=== PATIENT | female | born 1975 | race Caucasian/White ===

== ENCOUNTER → 2017-01-11 | Outpatient (REF) | payer OTHER ==
[2017-01-11 12:31] LABS: ANION GAP 9 MEQ/L (8-16); BLOOD UREA NITROGEN 11 MG/DL (7-18); CALCIUM LEVEL 8.7 MG/DL (8.5-10.1); CARBON DIOXIDE LEVEL 25 MEQ/L (21-32); CHLORIDE LEVEL 103 MEQ/L (98-107); CREATININE FOR GFR 0.87 MG/DL (0.55-1.02); GLOMERULAR FILTRATION RATE > 60.0 (>58); GLUCOSE, FASTING 186 MG/DL (70-105); POTASSIUM SERUM 4.3 MEQ/L (3.5-5.1); SODIUM LEVEL 137 MEQ/L (136-145)
== END ==
LOC: M SFHCPLAZ 08:32
PROVIDERS: ATTEND Nurse Practitioner Adult Health
DX: I87.2 Venous insufficiency (chronic) (peripheral) (principal); E55.9 Vitamin D deficiency, unspecified

== ENCOUNTER 2017-03-04 07:58 | Emergency (ER) | payer MEDICAID, OTHER ==
[~2017-03-04] VITALS: Ht 167.6 cm; Wt 104.5 kg
[2017-03-04 08:09] VITALS: BP 144/78
[2017-03-04] MEDS ORDERED: OMEP40CA2 PO (08:15)
[2017-03-04] MEDS ORDERED: NORT75CA2 PO (08:15)
[2017-03-04] MEDS ORDERED: ROPI1TAB PO (08:15)
[2017-03-04] MEDS ORDERED: ATIV1TAB7 PO (08:15)
[2017-03-04] MEDS ORDERED: ASPI1TAB PO (08:15)
[2017-03-04] MEDS ORDERED: BACL10TA2 PO (08:15)
[2017-03-04] MEDS ORDERED: HYDR200T3 PO (08:15)
[2017-03-04] MEDS ORDERED: MELO15TA4 PO (08:15)
[2017-03-04] MEDS ORDERED: DULO1CAP3 PO (08:15)
[2017-03-04] MEDS ORDERED: RIZA10TA2 PO (08:15)
[2017-03-04] MEDS ORDERED: BETA0.0543 TOP (08:30)
[2017-03-04] MEDS ORDERED: PRED20TA PO (08:30)
== END 2017-03-04 08:33 | disposition home or self-care (01) ==
LOC: M ED 07:58
DX: L50.0 Allergic urticaria (principal); J44.9 Chronic obstructive pulmonary disease, unspecified; K21.9 Gastro-esophageal reflux disease without esophagitis; G43.909 Migraine, unspecified, not intractable, without status migrainosus; M19.90 Unspecified osteoarthritis, unspecified site; F41.9 Anxiety disorder, unspecified; E66.9 Obesity, unspecified; Z79.899 Other long term (current) drug therapy; Z79.82 Long term (current) use of aspirin; F17.210 Nicotine dependence, cigarettes, uncomplicated

== ENCOUNTER 2017-04-20 11:20 | Emergency (ER) | payer MEDICAID, OTHER ==
[~2017-04-20] VITALS: Ht 165.1 cm; Wt 104.6 kg
[2017-04-20 11:20] VITALS: BP 129/85
[~2017-04-20 11:20] MED LIST: ASPI1TAB PO; ATIV1TAB7 PO; BACL10TA2 PO; BETA0.0543 TOP; DULO1CAP3 PO; HYDR200T3 PO; MELO15TA4 PO; NORT75CA2 PO; OMEP40CA2 PO; PRED20TA PO; RIZA10TA2 PO; ROPI1TAB PO
[2017-04-20] MEDS ORDERED: NAPR500T PO (12:58)
[2017-04-20] MEDS ORDERED: BACT800T5 PO (12:58)
== END 2017-04-20 13:15 | disposition home or self-care (01) ==
LOC: M ED 11:20
DX: L03.221 Cellulitis of neck (principal); E66.9 Obesity, unspecified; F99 Mental disorder, not otherwise specified; K21.9 Gastro-esophageal reflux disease without esophagitis; F17.210 Nicotine dependence, cigarettes, uncomplicated; Z79.899 Other long term (current) drug therapy; Z79.82 Long term (current) use of aspirin

== ENCOUNTER → 2017-05-31 | Outpatient (REF) | payer OTHER ==
[~2017-05-31] MED LIST changes: +BACT800T5 PO; +NAPR500T PO
[2017-05-31 14:41] LABS: BACTERIA, URINE SMALL AMOUNT; HYALINE CAST, URINE NONE SEEN /lpf (0-1); MICROSCOPIC EXAM PERFORMED; RBC, URINE NONE SEEN /hpf (0-3); SQUAMOUS EPITHELIAL CELL URINE LARGE AMOUNT /hpf (SMALL AMT); WBC, URINE 0-1 /hpf (0-3)
[2017-06-03 00:08] LABS: Candida species Negative (Negative); Gardnerella vaginalis Positive (Negative); Trichamonas vaginalis Negative (Negative)
== END ==
LOC: M SMT 13:32
PROVIDERS: ATTEND Specialist
DX: N89.8 Other specified noninflammatory disorders of vagina (principal); N39.46 Mixed incontinence

== ENCOUNTER → 2017-09-22 | Outpatient (REF) | payer OTHER ==
[2017-09-22 14:07] LABS: HEMATOCRIT 40.2 % (36.0-47.0); HEMOGLOBIN 13.3 g/dl (12.0-16.0); MEAN CORPUSCULAR HEMOGLOBIN 28.3 pg (27.0-33.0); MEAN CORPUSCULAR HGB CONC 33.1 g/dl (32.0-36.5); MEAN CORPUSCULAR VOLUME 85.5 fl (80.0-96.0); PLATELET COUNT, AUTOMATED 282 10^3/uL (150-450); WHITE BLOOD COUNT 10.7 10^3/uL (4.0-10.0)
[2017-09-22 14:31] LABS: ALBUMIN 3.2 GM/DL (3.2-5.2); ALBUMIN/GLOBULIN RATIO 0.76 (1.00-1.93); ALKALINE PHOSPHATASE 82 U/L (45-117); ALT/SGPT 24 U/L (12-78); ANION GAP 8 MEQ/L (8-16); AST/SGOT 17 U/L (7-37); BILIRUBIN,TOTAL 0.3 MG/DL (0.2-1.0); BLOOD UREA NITROGEN 11 MG/DL (7-18); CARBON DIOXIDE LEVEL 25 MEQ/L (21-32); CHLORIDE LEVEL 104 MEQ/L (98-107); CHOLESTEROL LEVEL 133 MG/DL (<200); CHOLESTEROL RISK RATIO 4.586 (<5); CREATININE FOR GFR 0.76 MG/DL (0.55-1.02); GLOMERULAR FILTRATION RATE > 60.0 (>58); GLUCOSE, FASTING 169 MG/DL (70-105); HDL CHOLESTEROL 29 MG/DL (>40); NON-HDL-C 104 MG/DL; SODIUM LEVEL 137 MEQ/L (136-145); TOTAL PROTEIN 7.4 GM/DL (6.4-8.2); TRIGLYCERIDES LEVEL 150 MG/DL (<150)
[2017-09-22 14:57] LABS: ESTIMATED AVERAGE GLUCOSE 235 MG/DL (60-110); HEMOGLOBIN A1c 9.8 %
== END ==
LOC: M SFHCPLAZ 10:55
DX: Z00.00 Encounter for general adult medical examination without abnormal findings (principal); H66.93 Otitis media, unspecified, bilateral
CPT/HCPCS: 84443

== ENCOUNTER → 2018-01-13 | Outpatient (CLI) | payer OTHER | LOC: M WHC 08:06 | DX: Z12.31 Encounter for screening mammogram for malignant neoplasm of breast (principal) | CPT/HCPCS: 77067 ==

== ENCOUNTER 2018-02-03 08:12 | Emergency (ER) | payer OTHER ==
[2018-02-03] MEDS ORDERED: IBUPROFEN 600 MG TAB As Ordered (08:50)
[2018-02-03] MEDS: IBUPROFEN 600 MG TAB PO (08:52)
== END 2018-02-03 08:54 | disposition home or self-care (01) ==
LOC: M ED 08:12
DX: H66.91 Otitis media, unspecified, right ear (principal); J45.909 Unspecified asthma, uncomplicated; K21.9 Gastro-esophageal reflux disease without esophagitis; J44.9 Chronic obstructive pulmonary disease, unspecified; F41.9 Anxiety disorder, unspecified; M19.90 Unspecified osteoarthritis, unspecified site; G43.909 Migraine, unspecified, not intractable, without status migrainosus; F17.200 Nicotine dependence, unspecified, uncomplicated; Z79.899 Other long term (current) drug therapy; Z79.82 Long term (current) use of aspirin
CPT/HCPCS: 99282

== ENCOUNTER → 2018-03-16 | Outpatient (CLI) | payer OTHER | LOC: M PAIN 10:00 | DX: M54.2 Cervicalgia (principal); M53.3 Sacrococcygeal disorders, not elsewhere classified; M25.50 Pain in unspecified joint; I10 Essential (primary) hypertension; M19.011 Primary osteoarthritis, right shoulder; M19.012 Primary osteoarthritis, left shoulder; G43.909 Migraine, unspecified, not intractable, without status migrainosus; F32.9 Major depressive disorder, single episode, unspecified; F41.9 Anxiety disorder, unspecified; G47.33 Obstructive sleep apnea (adult) (pediatric); J45.909 Unspecified asthma, uncomplicated; F17.210 Nicotine dependence, cigarettes, uncomplicated; Z79.84 Long term (current) use of oral hypoglycemic drugs; Z79.899 Other long term (current) drug therapy; Z88.6 Allergy status to analgesic agent | CPT/HCPCS: G0463 ==

== ENCOUNTER → 2018-05-04 | Outpatient (REF) | payer OTHER ==
[2018-05-04 18:02] LABS: APPEARANCE, URINE CLEAR (CLEAR); BACTERIA, URINE AUTO NEGATIVE (NEGATIVE); BILIRUBIN, URINE AUTO NEGATIVE (NEGATIVE); BLOOD, URINE BLOOD NEGATIVE (NEGATIVE); COLOR, URINE STRAW (YELLOW); GLUCOSE, URINE (UA) AUTO NEGATIVE (NEGATIVE); KETONE, URINE AUTO NEGATIVE (NEGATIVE); LEUKOCYTE ESTERASE, URINE AUTO NEGATIVE (NEGATIVE); NITRITE, URINE AUTO NEGATIVE (NEGATIVE); PROTEIN, URINE AUTO NEGATIVE (NEGATIVE); RBC, URINE AUTO 0 /HPF (0-3); SPECIFIC GRAVITY URINE AUTO 1.008 (1.002-1.035); SQUAMOUS EPITHELIAL CELL UR AU 0 /HPF (0-6); UROBILINOGEN, URINE AUTO 0.2 mg/dL (0.0-2.0); WBC, URINE AUTO 0 /HPF (0-3)
== END ==
LOC: M SMT 17:14
DX: R39.15 Urgency of urination (principal)
CPT/HCPCS: 81001

== ENCOUNTER → 2018-06-08 | Outpatient (CLI) | payer OTHER | LOC: M PAIN 08:30 | DX: M79.7 Fibromyalgia (principal); M54.2 Cervicalgia; M53.3 Sacrococcygeal disorders, not elsewhere classified; M25.512 Pain in left shoulder; I10 Essential (primary) hypertension; G43.909 Migraine, unspecified, not intractable, without status migrainosus; F32.9 Major depressive disorder, single episode, unspecified; F41.9 Anxiety disorder, unspecified; G47.33 Obstructive sleep apnea (adult) (pediatric); Z79.84 Long term (current) use of oral hypoglycemic drugs; Z79.899 Other long term (current) drug therapy; Z88.8 Allergy status to other drugs, medicaments and biological substances | CPT/HCPCS: G0463 ==

== ENCOUNTER → 2018-07-25 | Outpatient (REF) | payer OTHER ==
[2018-07-25 12:29] LABS: ANION GAP 9 MEQ/L (8-16); AST/SGOT 19 U/L (7-37); BLOOD UREA NITROGEN 11 MG/DL (7-18); CALCIUM LEVEL 8.7 MG/DL (8.5-10.1); CARBON DIOXIDE LEVEL 26 MEQ/L (21-32); CHLORIDE LEVEL 101 MEQ/L (98-107); CREATININE FOR GFR 0.82 MG/DL (0.55-1.30); GLOMERULAR FILTRATION RATE > 60.0 (>58); GLUCOSE, FASTING 186 MG/DL (70-100); POTASSIUM SERUM 4.2 MEQ/L (3.5-5.1); SODIUM LEVEL 136 MEQ/L (136-145)
[2018-07-25 12:30] LABS: ALBUMIN/GLOBULIN RATIO 0.75 (1.00-1.93); ALKALINE PHOSPHATASE 73 U/L (45-117); ALT/SGPT 27 U/L (12-78); BILIRUBIN,TOTAL 0.1 MG/DL (0.2-1.0); CHOLESTEROL LEVEL 128 MG/DL (<200); CHOLESTEROL RISK RATIO 4.571 (<5); HDL CHOLESTEROL 28 MG/DL (>40); LDL CHOLESTEROL 54 MG/DL (<100); NON-HDL-C 100 MG/DL; TOTAL 25(OH) VITAMIN D 29.9 NG/ML (30.0-100.0); TRIGLYCERIDES LEVEL 231 MG/DL (<150)
[2018-07-25 12:36] LABS: MALB URINE SIEMENS 5.4 MG/L; MAU/CREAT RATIO 5.1 MCG/MG (0.0-30.0)
[2018-07-25 12:45] LABS: ESTIMATED AVERAGE GLUCOSE 206 MG/DL (60-110); HEMOGLOBIN A1c 8.8 %
== END ==
LOC: M SFHCPLAZ 09:00
DX: Z00.00 Encounter for general adult medical examination without abnormal findings (principal); E55.9 Vitamin D deficiency, unspecified; E11.9 Type 2 diabetes mellitus without complications

== ENCOUNTER → 2018-07-26 | Outpatient (REF) | LOC: M SMT 11:07 | DX: Z02.71 Encounter for disability determination (principal) ==

== ENCOUNTER → 2018-09-08 | Outpatient (CLI) | payer OTHER ==
[~2018-09-08] MED LIST changes: +AMOX500C PO; +MELO15TA28 PO; -MELO15TA4 PO; +NAPR-50 PO; -NAPR500T PO; +TYLE325T5 PO
--- NOTE | 2018-09-29 02:16 | ECWPNPC ---
PATIENT NAME: CARLTON SAENZ : 1975 GENDER: FEMALE VISIT DATE: 09/08/2018 DISCHARGE DATE: 09/08/18921 VISIT LOCKED DATE TIME: PHYSICIAN: ROSARIO SULLIVAN RESOURCE: ROSARIO SULLIVAN REASON FOR APPOINTMENT 1. GENERAL PAIN HISTORY OF PRESENT ILLNESS HISTORY OF PRESENT ILLNESS: PAIN THE PATIENT DESCRIBES THE PAIN... THE PATIENT DESCRIBES THE PAIN... HERE FOR F/U OF CHRONIC GENERALIZED PAIN.MULTIPLE MEDICATION TRIALS HAVE BEEN INEFECTIVE.WE INCREASED LYRICA 200MG TID AND SHE IS NOTICING SOME IMPROVEMENT AND LESS NEED FOR 6 DOSES OF TRAMADOL PER DAY.NOTICING MORE PAIN DUE TO WEATHER. RATING PAIN VAS 9/10. FALL RISK SCREENING: SCREENING :NO FALLS IN THE PAST YEAR CURRENT MEDICATIONS TAKING RIZATRIPTAN BENZOATE 10 MG TABLET 1 TABLET NEEDED ONE TIME ORALLY ONCE A DAY, NOTES: ESVIN PARIS TAKING HYDROXYCHLOROQUINE SULFATE 200 MG TABLET 1 TABLET WITH FOOD OR MILK ORALLY TWICE DAILY, NOTES: DR. MICHAEL FAIRCHILD TAKING BACLOFEN 10 MG TABLET 1 TABLET WITH FOOD OR MILK ORALLY THREE TIMES A DAY, NOTES: ESVIN [place] TAKING LYRICA 200 MG CAPSULE 1 CAPSULE ORALLY THREE TIMES A DAY TAKING TRAZODONE HCL 100 MG TABLET 1 TABLET AT BEDTIME ORALLY ONCE A DAY TAKING CITALOPRAM HYDROBROMIDE 20 MG TABLET TAKE ONE TABLET BY MOUTH EVERY DAY ORAL TAKING OMEPRAZOLE 40 MG CAPSULE DELAYED RELEASE 1 CAPSULE ORALLY ONCE A DAY TAKING PROAIR HFA 108 (90 BASE) MCG/ACT AEROSOL SOLUTION 2 PUFFS NEEDED INHALATION EVERY 6 HRS TAKING TRAMADOL HCL 50 MG TABLET 1-2 ORALLY BID TAKING HYDROCHLOROTHIAZIDE 12.5 MG CAPSULE 1 CAPSULE ORALLY ONCE A DAY TAKING OXYBUTYNIN CHLORIDE ER 10 MG TABLET EXTENDED RELEASE 24 HOUR 1 TABLET ORALLY ONCE A DAY TAKING AIRDUO RESPICLICK 232/14 232-14 MCG/ACT AEROSOL POWDER BREATH ACTIVATED 1 PUFF INHALATION TWICE A DAY TAKING MIRAPEX 0.5 MG TABLET 1 TABLET ORALLY THREE TIMES A DAY TAKING DRISDOL 15802 UNIT CAPSULE 1 CAPSULE ORALLY WEEKLY TAKING VENTOLIN HFA 108 (90 BASE) MCG/ACT AEROSOL SOLUTION INHALE TWO PUFFS BY MOUTH EVERY 6 HOURS NEEDED TAKING FLOMAX 0.4 MG CAPSULE 1 CAPSULE ORALLY ONCE A DAY TAKING GLIPIZIDE ER 5 MG TABLET EXTENDED RELEASE 24 HOUR 1 TABLET ORALLY DAILY TAKING METFORMIN HCL ER 500 MG TABLET EXTENDED RELEASE 24 HOUR 2 TABLETS ORALLY 2 TABS IN THE AM, 2 TAB AT SUPPER TAKING ALOGLIPTIN BENZOATE 6.25 MG TABLET 1 TAB ORALLY DAILY MEDICATION LIST REVIEWED AND RECONCILED WITH THE PATIENT PAST MEDICAL HISTORY HYPERTENSION OSTEOARTHRITIS OF SPINE/SHOULDERS MIGRAINES CERVICAL DYSPLASIA CHRONIC HEMATURIA (WAS SEEING UROLOGIST IN [place]) DEPRESSION/ANXIETY LEFT SHOULDER PAIN WITH LEFT ARM WEAKNESS/NUMBNESS FOR > 1 YR (MRI HAS BEEN ORDERED BY NEURO) OVARAIN CYSTS HISTORY OF REFUSES FOLLOW UP 06/08/16 RANDA = CPAP ASTHMA/COPD PER PT QUESTION ANTIPHOSPHOLIPID SYNDROME, PER RHEUMATOLOGY NOTES ABDOMINAL WALL CELLULITIS FIBROMYALGIA ALLERGIES NAPROXEN: UPSET STOMACH: SIDE EFFECTS SURGICAL HISTORY D&C X2 1989 APPENDECTOMY 05/2002 BTL 1999 APPROXIMATELY LEEP X2 FOR MYRON 3 2003 TVH DUE TO PROLAPSED UTERUS 09/2004 ABDOMINAL HERNIA REPAIR 2007 BILATERAL CARPAL TUNNEL AND RIGHT ELBOW ULNAR NERVE TRANSPOSITION 08/11/2016 FAMILY HISTORY FATHER: 47 YRS, HEART DISEASE, HTN MOTHER: ALIVE, HTN, DM-2, ASTHMA,COPD SIBLINGS: YOUNGEST BROTHER: CHF AND HTN DAUGHTER(S): ASTHMA/ALLERGIES/HEARING PROBLEMS MATERNAL UNCLE: RENAL CANCER MATERNAL AUNT: ALIVE, ONE WITH BREAST CANCER, MASTECTOMY, DX 60 5 BROTHER(S) , 1 SISTER(S) . 1 SON(S) , 2 DAUGHTER(S) . BREAST CANCER MOTHERS SIDE OF THE FAMILY- 2 AUNTSKIDNEY CANCER MOTHERS SIDE OF THE FAMILY- 2 UNCLES. SOCIAL HISTORY GENERAL: TOBACCO USE ARE YOU A:CURRENT SMOKER ARE YOU INTERESTED IN QUITTING?NOT READY TO QUIT COUNSELED THE PATIENT ON SMOKING EFFECTS, EDUCATION [id number]/23/2018 HOW MANY CIGARETTES A DAY DO YOU SMOKE?11-20 BMI CARE GOAL FOLLOW-UP ABOVE NORMAL BMI FOLLOW-UPWEIGHT MONITORING ALCOHOL SCREENING DID YOU HAVE A DRINK CONTAINING ALCOHOL IN THE PAST YEAR?NO POINTS0 INTERPRETATIONNEGATIVE RECREATIONAL DRUG USE DRUG USE?NO PATIENT DENIES ABUSE OR MISSUSED OF ANY MEDICATION. PATIENT DENIES USE OF ANY ILLEGAL SUBSTANCE INCLUDING MARIJUANA OR COCAINE. CAFFEINE CAFFEINE USE?YES COFFEE = 2 CUPS PER DAY HOW OFTEN AND HOW MUCH? 1-2 COFFEES PER DAY 16OZ OF SODA PER DAY SEXUAL HX HAD SEX IN THE LAST 12 MONTHS (VAGINAL, ORAL, OR ANAL)?YES WITHMEN ONLY USE PROTECTION?NO HAVE YOU EVER HAD AN STD?NO HIV / HEP-C SCREENING HIV TEST OFFERED TO PATIENT:YES DATE OFFERED:07/25/2018 TEST ACCEPTED:NO REASON:PATIENT DECLINED BROCHURE PROVIDED TO PATIENTNO 07/25/2018 DECLINED HEP-C TEST OFFERED TO PATIENT:YES DATE OFFERED:07/25/2018 TEST ACCEPTED:NO REASON:PATIENT DECLINED FAITH FAITH NONE LANGUAGE MONTSERRATIAN. EDUCATION 9TH GRADE, NO GED. LEARNING BARRIERS / SPECIAL NEEDS CHANGE FROM LAST VISIT?YES BURN ON ABDOMEN BARRIERS TO LEARNING?NO HEARING IMPAIRED?NO VISION IMPAIRED?YES :CORRECTIVE LENSES COGNITIVELY IMPAIRED?NO READINESS TO LEARN?YES LEARNING PREFERENCES?NO LEARNING CAPABILITIES PRESENT?YES EMOTIONAL BARRIERS?NO SPECIAL DEVICES?NO DOMESTIC VIOLENCE NONE. OCCUPATION: UNEMPLOYED "[employer] DID PAPER WORK" TRIED FOR MEDICAL DISABLILITY 4 TIMES DENIED.. DIET: REGULAR. EXERCISE: NO REGULAR EXERCISE. MARITAL STATUS: . OTHERS AT HOME: SPOUSE, 1 CHILD AT HOME 2 OTHER CHILDREN ARE OUT OF HOME. PAIN CLINIC PFS, CLERGY, PUBLIC HEALTH REFERRALS HAS THE PATIENT BEEN EDUCATED REGARDING HIS/HER PLAN OF CARE?YES HAS THE PATIENT BEEN EDUCATED REGARDING PAIN, THE RISK FOR PAIN, THE IMPORTANCE OF EFFECTIVE PAIN MANAGEMENT, AND THE PAIN ASSESSMENT PROCESS?YES HOUSING: OWNS HOME. ADVANCE DIRECTIVE ADVANCE DIRECTIVE DISCUSSED WITH PATIENT:YES DECLINED HOSPITALIZATION/MAJOR DIAGNOSTIC PROCEDURE SX RELATED REVIEW OF SYSTEMS REVIEWED BY: PROVIDER: ROSARIO IRIZARRY . CONSTITUTIONAL: ANY CHANGE IN YOUR MEDICAL CONDITION? NO . CHILLS NO . FEVER NO . INFECTION: DO YOU HAVE NEW INFECTIONS? NO . DO YOU HAVE HISTORY OF MRSA? NO . MUSCULOSKELETAL: ANY NEW PATTERNS OF PAIN OR NUMBNESS? YES, RIGHT HIP NUMBNESS AND CRAMPS FOR PAST 3 MONTHS . GASTROENTEROLOGY: ANY NEW CHANGE IN BOWEL CONTROL? YES, STATES NO LOSS OF CONTROL HOWEVER HAS HAD CONSTIPATION ALTERNATING WITH DIARRHEA FOR PAST 3 WEEKS WITH CONSTIPATION BEING WORSE THAN DIARRHEA . GENITOURINARY: ANY NEW CHANGE IN BLADDER CONTROL? NO . IS THERE A CHANCE YOU COULD BE ? NO . HEMATOLOGY/LYMPH: DO YOU TAKE ANY BLOOD THINNERS? (FOR EXAMPLE- COUMADIN, PLAVIX, AGGRENOX, PLATEL, PRADAXA, OR XARELTO) YES - PLAVIX . WHEN WAS YOUR LAST DOSE? DATE: TIME: . NEUROLOGY: HAVE YOU FALLEN IN THE PAST 6 MONTHS? YES . ANY NEW EXTREMITY NUMBNESS OR WEAKNESS? NO . CARDIOLOGY: DO YOU HAVE A PACEMAKER OR DEFIBRILLATOR? NO . RESPIRATORY: HAVE YOU BEEN SICK IN THE PAST WEEK? NO . FEVER NO . FLU LIKE SYMPTOMS? NO . COUGH NO . INTEGUMENTARY: DO YOU HAVE ANY RASHES OR OPEN SORES? NO . ALLERGIC/IMMUNO: ARE YOU ALLERGIC TO SHELLFISH OR IV DYE? NO . ANY NEW ALLERGIES? NO . PSYCHIATRIC: DO YOU HAVE THOUGHTS OF HURTING YOURSELF OR SOMEONE ELSE? NO . ARE YOU ABUSED, NEGLECTED, OR IN AN UNSAFE ENVIRONMENT? NO . ENDOCRINOLOGY: ARE YOU DIABETIC? YES . OTHER: DO YOU NEED ANY PRESCRIPTIONS? NO . IF YES, PLEASE LIST: ____ . ANY NEW PROBLEMS WITH YOUR MEDICATIONS? NO . WHEN DID YOU LAST EAT? ____ . WHEN DID YOU LAST DRINK? ____ . WHAT DID YOU LAST DRINK? ____ . NAME OF PERSON DRIVING YOU HOME? ____ . DO YOU HAVE ANY OTHER QUESTIONS OR CONCERNS YES - PAIN MEDICATIONS NOT WORKING - TRAMADOL . VITAL SIGNS WT 241 LBS, HT 66 IN, BMI 38.89 INDEX, BP 129/85 MM HG, HR 72 /MIN, RR 18 /MIN, TEMP 97.9 F, OXYGEN SAT % 94%, NA INITIALS SC 09:04, REVIEWED BY: JAZMIN. EXAMINATION GENERAL EXAMINATION: GENERAL APPEARANCE:ALERT,NO ACUTE DISTRESS. . PSYCHAFFECT NORMAL . LUNGS:LUNG MOTT ARE CLEAR TO AUSCULTATION BILATERALLY. GOOD MOVEMENT OF AIR . HEART:S1, S2 IN A REGULAR RATE AND RHYTHM. NO SIGNIFICANT MURMURS, RUBS OR GALLOPS NOTED . MUSCULOSKELETAL:MUSCLE STRENGTH TESTING 5/5 BILATERAL LOWER EXTREMITIES TENDER WITH PALPATION OVER LEFT SHOULDER.LEFT UPPER ARM IS TENDER TO PALPATION. MULTIPLE AREAS OF TENDER SPOTS INDICATIVE OF FIBROMYALGIA. . LUMBAR SACRAL SPINETENDER OVER LOW BACK WITH SPECIFIC POINT TENDERNESS OVER RIGHT SIJ POSITIVE PATRICKS TEST RIGHT LEG . DIAGNOSTIC TESTS REVIEWEDXRAY-LEFT [id number]. ASSESSMENTS FIBROMYALGIA - M79.7 (PRIMARY) CERVICALGIA - M54.2 SACRO-ILIAC PAIN - M53.3 PAIN OF LEFT SHOULDER REGION - M25.512 TREATMENT FIBROMYALGIA REFILL LYRICA CAPSULE, 200 MG, 1 CAPSULE, ORALLY, THREE TIMES A DAY, 30 DAY(S), 90 CAPSULE, REFILLS 2 REFILL TRAMADOL HCL TABLET, 50 MG, 1-2, ORALLY, BID, 30 DAY(S), 120, REFILLS 2 NOTES: ISTOP REGISTRY REVIEWED AND DEMONSTRATES COMPLLIANCE. , RISKS AND BENEFITS OF NARCOTIC/OPIOD MEDICATIONS WERE REVIEWED WITH PATIENT - THIS INCLUDES BUT IS NOT LIMITED TO RISK OF DEPENDANCE/DEVELOPMENT OF ADDICTION, MOOD DISTURBANCE AND DEPRESSION, OSTEOPOROSIS, HORMONAL AND LABIDAL CHANGES, RESPIRATORY DEPRESSION AND . PATIENT IS ADVISED NOT TO DRIVE OR DRINK ALCOHOL WHILE ON THESE MEDICATIONS. PROCEDURE CODES FA211 ESTABILISHED PATIENT [facility] CHARGE DISPOSITION & COMMUNICATION FOLLOW UP 3 MONTHS ELECTRONICALLY SIGNED BY EDIE PITTS ON 09/28/2018 AT 12:27 PM EST DISCLAIMER : THIS IS A VISIT SUMMARY EXTRACTED FROM THE [employer] CHART. IT IS NOT A COPY OF THE [employer] PROGRESS NOTE. ROJELIO
== END ==
LOC: M PAIN 08:30
PROVIDERS: ATTEND Nurse Practitioner Family
DX: M79.7 Fibromyalgia (principal); M54.2 Cervicalgia; M53.3 Sacrococcygeal disorders, not elsewhere classified; M25.512 Pain in left shoulder; E11.9 Type 2 diabetes mellitus without complications; I10 Essential (primary) hypertension; J45.909 Unspecified asthma, uncomplicated; G43.909 Migraine, unspecified, not intractable, without status migrainosus; F32.9 Major depressive disorder, single episode, unspecified; F41.9 Anxiety disorder, unspecified; G47.33 Obstructive sleep apnea (adult) (pediatric); F17.210 Nicotine dependence, cigarettes, uncomplicated; E66.01 Morbid (severe) obesity due to excess calories; Z79.891 Long term (current) use of opiate analgesic; Z79.84 Long term (current) use of oral hypoglycemic drugs; Z79.899 Other long term (current) drug therapy; Z68.38 Body mass index [BMI] 38.0-38.9, adult; Z79.01 Long term (current) use of anticoagulants; Z88.8 Allergy status to other drugs, medicaments and biological substances

== ENCOUNTER → 2018-10-16 | Outpatient (REF) | payer OTHER ==
[2018-10-16 12:05] LABS: HEMATOCRIT 39.7 % (36.0-47.0); MEAN CORPUSCULAR HEMOGLOBIN 27.1 pg (27.0-33.0); MEAN CORPUSCULAR HGB CONC 32.7 g/dl (32.0-36.5); MEAN CORPUSCULAR VOLUME 82.9 fl (80.0-96.0); PLATELET COUNT, AUTOMATED 289 10^3/uL (150-450); RED BLOOD COUNT 4.79 10^6/uL (4.00-5.40); WHITE BLOOD COUNT 10.7 10^3/uL (4.0-10.0)
[2018-10-16 12:31] LABS: ALBUMIN 3.1 GM/DL (3.2-5.2); ALT/SGPT 19 U/L (12-78); BILIRUBIN,TOTAL 0.2 MG/DL (0.2-1.0); BLOOD UREA NITROGEN 10 MG/DL (7-18); CALCIUM LEVEL 8.8 MG/DL (8.5-10.1); CARBON DIOXIDE LEVEL 27 MEQ/L (21-32); CHLORIDE LEVEL 103 MEQ/L (98-107); CHOLESTEROL LEVEL 116 MG/DL (<200); CHOLESTEROL RISK RATIO 4.142 (<5); CREATININE FOR GFR 0.82 MG/DL (0.55-1.30); GLOMERULAR FILTRATION RATE > 60.0 (>58); GLUCOSE, FASTING 109 MG/DL (70-100); HDL CHOLESTEROL 28 MG/DL (>40); HEMOGLOBIN A1c 8.7 %; LDL CHOLESTEROL 52 MG/DL (<100); NON-HDL-C 88 MG/DL; POTASSIUM SERUM 4.3 MEQ/L (3.5-5.1); SODIUM LEVEL 138 MEQ/L (136-145); TOTAL 25(OH) VITAMIN D 69.7 NG/ML (30.0-100.0); TOTAL PROTEIN 7.1 GM/DL (6.4-8.2); TRIGLYCERIDES LEVEL 181 MG/DL (<150); TROPONIN I < 0.02 NG/ML (< 0.10)
== END ==
LOC: M SFHCPLAZ 09:00
PROVIDERS: ATTEND Nurse Practitioner Adult Health
DX: E11.9 Type 2 diabetes mellitus without complications (principal); R07.89 Other chest pain; E55.9 Vitamin D deficiency, unspecified

== ENCOUNTER → 2018-12-07 | Outpatient (CLI) | payer OTHER ==
[~2018-12-07] MED LIST changes: -ASPI1TAB PO; +ASPI81TA26 PO; -NAPR-50 PO; +NAPR-837 PO
--- NOTE | 2018-12-22 02:31 | ECWPNPC ---
PATIENT NAME: CARLTON SAENZ : 1975 GENDER: FEMALE VISIT DATE: 12/07/2018 DISCHARGE DATE: 12/07/18 1157 VISIT LOCKED DATE TIME: PHYSICIAN: ROSARIO SULLIVAN RESOURCE: ROSARIO SULLIVAN REASON FOR APPOINTMENT 1. GENERAL PAIN HISTORY OF PRESENT ILLNESS HISTORY OF PRESENT ILLNESS: HERE FOR F/U OF CHRONIC GENERALIZED JOINT PAIN.RATING PAIN VAS 8/10.FEELS SHE IS HAVING A FLARE UP LATELY.DISCUSSED MEDICATION OPTIONS.HISTORY OF CHRONIC GENERALIZED JOINT PAIN.DESCRIBES PAIN CONTINUOUS,ACHING AND BURNING. PAIN THE PATIENT DESCRIBES THE PAIN... FALL RISK SCREENING: SCREENING :NO FALLS REPORTED IN THE LAST YEAR CURRENT MEDICATIONS TAKING RIZATRIPTAN BENZOATE 10 MG TABLET 1 TABLET NEEDED ONE TIME ORALLY ONCE A DAY, NOTES: ESVIN PARIS TAKING HYDROXYCHLOROQUINE SULFATE 200 MG TABLET 1 TABLET WITH FOOD OR MILK ORALLY TWICE DAILY, NOTES: DR. MICHAEL FAIRCHILD TAKING TRAZODONE HCL 100 MG TABLET 1 TABLET AT BEDTIME ORALLY ONCE A DAY TAKING CITALOPRAM HYDROBROMIDE 20 MG TABLET TAKE ONE TABLET BY MOUTH EVERY DAY ORAL TAKING AIRDUO RESPICLICK 232/14 232-14 MCG/ACT AEROSOL POWDER BREATH ACTIVATED 1 PUFF INHALATION TWICE A DAY TAKING MIRAPEX 0.5 MG TABLET 1 TABLET ORALLY THREE TIMES A DAY TAKING DRISDOL 41183 UNIT CAPSULE 1 CAPSULE ORALLY WEEKLY TAKING METFORMIN HCL ER 500 MG TABLET EXTENDED RELEASE 24 HOUR 2 TABLETS ORALLY 2 TABS IN THE AM, 2 TAB AT SUPPER TAKING ALOGLIPTIN BENZOATE 6.25 MG TABLET 1 TAB ORALLY DAILY, NOTES: ANDREA TAKING LYRICA 200 MG CAPSULE 1 CAPSULE ORALLY THREE TIMES A DAY TAKING ULTRA TEST STRIPS - STRIP DIRECTED IN VITRO E11.9 DAILY THREE DAYS PER WEEK AND PRN TAKING LANCET DEVICE - MISCELLANEOUS DIRECTED TOPICALLY E11.9 BID 3 DAYS PER WEEK AND PRN TAKING CARAFATE 1 GM TABLET 1 TABLET ON AN EMPTY STOMACH ORALLY BEFORE BEDTIME TAKING OMEPRAZOLE 40 MG CAPSULE DELAYED RELEASE 1 CAPSULE ORALLY ONCE A DAY TAKING VENTOLIN HFA 108 (90 BASE) MCG/ACT AEROSOL SOLUTION INHALE TWO PUFFS BY MOUTH EVERY 6 HOURS NEEDED TAKING TRAMADOL HCL 50 MG TABLET 1-2 ORALLY FOR PAIN EVERY 12 HOURS NEEDED MDD4 TAKING OXYBUTYNIN CHLORIDE ER 10 MG TABLET EXTENDED RELEASE 24 HOUR 1 TABLET ORALLY ONCE A DAY TAKING LISINOPRIL 5 MG TABLET 1 TABLET ORALLY ONCE A DAY TAKING FLUTICASONE PROPIONATE 50 MCG/ACT SUSPENSION 2 SPRAYS IN EACH NOSTRIL NASALLY ONCE A DAY TAKING TRIAMCINOLONE ACETONIDE 0.1 % CREAM 1 APPLICATION TO AFFECTED AREA EXTERNALLY TWICE A DAY TO RASH ON LEGS MEDICATION LIST REVIEWED AND RECONCILED WITH THE PATIENT PAST MEDICAL HISTORY HYPERTENSION OSTEOARTHRITIS OF SPINE/SHOULDERS MIGRAINES CERVICAL DYSPLASIA CHRONIC HEMATURIA (WAS SEEING UROLOGIST IN [place]) DEPRESSION/ANXIETY/PANIC DISORDER FOLLOWS WITH [facility]-DR. BETANCOURT LEFT SHOULDER PAIN WITH LEFT ARM WEAKNESS/NUMBNESS FOR > 1 YR (MRI HAS BEEN ORDERED BY NEURO) OVARAIN CYSTS HISTORY OF REFUSES FOLLOW UP 06/08/16 RANDA = CPAP ASTHMA/COPD PER PT QUESTION ANTIPHOSPHOLIPID SYNDROME, PER RHEUMATOLOGY NOTES ABDOMINAL WALL CELLULITIS FIBROMYALGIA FAMILY HISTGORY OF HEART DISEASE DAD AND BROTHER < 50 ALLERGIES NAPROXEN: UPSET STOMACH - SIDE EFFECTS SURGICAL HISTORY D&C X2 1989 APPENDECTOMY 05/2002 BTL 1999 APPROXIMATELY LEEP X2 FOR MYRON 3 2003 TVH DUE TO PROLAPSED UTERUS 09/2004 ABDOMINAL HERNIA REPAIR 2007 BILATERAL CARPAL TUNNEL AND RIGHT ELBOW ULNAR NERVE TRANSPOSITION 08/11/2016 FAMILY HISTORY FATHER: 47 YRS, HEART DISEASE, HTN MOTHER: ALIVE, HTN, DM-2, ASTHMA,COPD SIBLINGS: YOUNGEST BROTHER: CHF AND HTN DAUGHTER(S): ASTHMA/ALLERGIES/HEARING PROBLEMS MATERNAL UNCLE: RENAL CANCER MATERNAL AUNT: ALIVE, ONE WITH BREAST CANCER, MASTECTOMY, DX 60 5 BROTHER(S) , 1 SISTER(S) . 1 SON(S) , 2 DAUGHTER(S) . BREAST CANCER MOTHERS SIDE OF THE FAMILY- 2 AUNTS\\\\NKIDNEY CANCER MOTHERS SIDE OF THE FAMILY- 2 UNCLES. SOCIAL HISTORY GENERAL: TOBACCO USE ARE YOU A:CURRENT SMOKER ARE YOU INTERESTED IN QUITTING?NOT READY TO QUIT COUNSELED THE PATIENT ON SMOKING EFFECTS, EDUCATION [id number]/23/2018 HOW MANY CIGARETTES A DAY DO YOU SMOKE?11-20 PATIENT COUNSELED ON THE DANGERS OF TOBACCO USE AND URGED TO QUIT:12/07/2018 LATEX QUESTIONNAIRE LATEX ALLERGY : HAVE YOU EVER DEVELOPED ANY TYPE OF REACTION AFTER HANDLING LATEX PRODUCTS SUCH RUBBER GLOVES, CONDOMS, DIAPHRAGMS, BALLOONS, SOCKS, OR UNDERWEAR?NO LATEX ALLERGY : HAVE YOU EVER DEVELOPED ANY TYPE OF REACTION DURING OR AFTER DENTAL APPOINTMENT, VAGINAL/RECTAL EXAMINATION, SURGICAL PROCEDURE, OR ANY OTHER EXPOSURE?NO LATEX RISK : HAVE YOU EVER HAD ANY DIFFICULTY BREATHING OR HIVES AFTER EATING OR HANDLING ANY FRUITS, OR VEGETABLES; SUCH KIWI, BANANAS, STONE FRUITS, OR CHESTNUTSNO LATEX RISK : DO YOU HAVE A PREVIOUS PERSONAL HISTORY OF MORE THAN NINE SURGERIES, SPINA BIFIDA, OR REPEATED CATHERTIZATIONS? NO LATEX RISK : ARE YOU FREQUENTLY EXPOSED TO LATEX PRODUCTS IN YOUR OCCUPATION?NO DATE ASKED : 12/06/2018 BMI CARE GOAL FOLLOW-UP ABOVE NORMAL BMI FOLLOW-UPWEIGHT MONITORING ALCOHOL SCREENING DID YOU HAVE A DRINK CONTAINING ALCOHOL IN THE PAST YEAR?NO POINTS0 INTERPRETATIONNEGATIVE RECREATIONAL DRUG USE DRUG USE?NO PATIENT DENIES ABUSE OR MISSUSED OF ANY MEDICATION. PATIENT DENIES USE OF ANY ILLEGAL SUBSTANCE INCLUDING MARIJUANA OR COCAINE. CAFFEINE CAFFEINE USE?YES COFFEE = 2 CUPS PER DAY HOW OFTEN AND HOW MUCH? 1-2 COFFEES PER DAY 16OZ OF SODA PER DAY SEXUAL HX HAD SEX IN THE LAST 12 MONTHS (VAGINAL, ORAL, OR ANAL)?YES WITHMEN ONLY USE PROTECTION?NO HAVE YOU EVER HAD AN STD?NO HIV / HEP-C SCREENING HIV TEST OFFERED TO PATIENT:YES DATE OFFERED:07/25/2018 TEST ACCEPTED:NO HEP-C TEST OFFERED TO PATIENT:YES DATE OFFERED:07/25/2018 REASON:PATIENT DECLINED TEST ACCEPTED:NO REASON:PATIENT DECLINED BROCHURE PROVIDED TO PATIENTNO 07/25/2018 DECLINED HOAHAOISM HOAHAOISM NONE LANGUAGE EMIRATI. EDUCATION 9TH GRADE, NO GED. LEARNING BARRIERS / SPECIAL NEEDS CHANGE FROM LAST VISIT?YES BURN ON ABDOMEN BARRIERS TO LEARNING?NO HEARING IMPAIRED?NO VISION IMPAIRED?YES COGNITIVELY IMPAIRED?NO :CORRECTIVE LENSES READINESS TO LEARN?YES LEARNING PREFERENCES?NO LEARNING CAPABILITIES PRESENT?YES EMOTIONAL BARRIERS?NO SPECIAL DEVICES?NO DOMESTIC VIOLENCE NONE. OCCUPATION: UNEMPLOYED "[employer] DID PAPER WORK" TRIED FOR MEDICAL DISABLILITY 4 TIMES DENIED.. DIET: REGULAR. EXERCISE: NO REGULAR EXERCISE. MARITAL STATUS: . OTHERS AT HOME: SPOUSE, 1 CHILD AT HOME 2 OTHER CHILDREN ARE OUT OF HOME. PAIN CLINIC PFS, CLERGY, PUBLIC HEALTH REFERRALS HAS THE PATIENT BEEN EDUCATED REGARDING HIS/HER PLAN OF CARE?YES HAS THE PATIENT BEEN EDUCATED REGARDING PAIN, THE RISK FOR PAIN, THE IMPORTANCE OF EFFECTIVE PAIN MANAGEMENT, AND THE PAIN ASSESSMENT PROCESS?YES HOUSING: OWNS HOME. ADVANCE DIRECTIVE ADVANCE DIRECTIVE DISCUSSED WITH PATIENT:YES OFFERED AND REFUSED HOSPITALIZATION/MAJOR DIAGNOSTIC PROCEDURE SX RELATED REVIEW OF SYSTEMS REVIEWED BY: PROVIDER: ROSARIO IRIZARRY . CONSTITUTIONAL: ANY CHANGE IN YOUR MEDICAL CONDITION? NO . CHILLS NO . FEVER NO . INFECTION: DO YOU HAVE NEW INFECTIONS? NO . DO YOU HAVE HISTORY OF MRSA? NO . MUSCULOSKELETAL: ANY NEW PATTERNS OF PAIN OR NUMBNESS? NO . GASTROENTEROLOGY: ANY NEW CHANGE IN BOWEL CONTROL? NO . GENITOURINARY: ANY NEW CHANGE IN BLADDER CONTROL? NO . IS THERE A CHANCE YOU COULD BE ? NO . HEMATOLOGY/LYMPH: DO YOU TAKE ANY BLOOD THINNERS? (FOR EXAMPLE- COUMADIN, PLAVIX, AGGRENOX, PLATEL, PRADAXA, OR XARELTO) NO . WHEN WAS YOUR LAST DOSE? DATE: TIME: . NEUROLOGY: HAVE YOU FALLEN IN THE PAST 12 MONTHS? NO . ANY NEW EXTREMITY NUMBNESS OR WEAKNESS? BOTH ARMS - JUST CAME ON ABOUT 1 MONTH AGO ESPECIALLY THE RIGHT . CARDIOLOGY: DO YOU HAVE A PACEMAKER OR DEFIBRILLATOR? NO . RESPIRATORY: HAVE YOU BEEN SICK IN THE PAST WEEK? NO . FEVER NO . FLU LIKE SYMPTOMS? NO . COUGH NO . INTEGUMENTARY: DO YOU HAVE ANY RASHES OR OPEN SORES? NO . ALLERGIC/IMMUNO: ARE YOU ALLERGIC TO IV DYE? NO . ANY NEW ALLERGIES? NO . PSYCHIATRIC: DO YOU HAVE THOUGHTS OF HURTING YOURSELF OR SOMEONE ELSE? NO . ARE YOU ABUSED, NEGLECTED, OR IN AN UNSAFE ENVIRONMENT? NO . ENDOCRINOLOGY: ARE YOU DIABETIC? YES . OTHER: DO YOU NEED ANY PRESCRIPTIONS? NO . IF YES, PLEASE LIST: ____ . ANY NEW PROBLEMS WITH YOUR MEDICATIONS? NO . WHEN DID YOU LAST EAT? ____ . WHEN DID YOU LAST DRINK? ____ . WHAT DID YOU LAST DRINK? ____ . NAME OF PERSON DRIVING YOU HOME? ____ . DO YOU HAVE ANY OTHER QUESTIONS OR CONCERNS NO . VITAL SIGNS WT 237.6 LBS, HT 66 IN, BMI 38.35 INDEX, BP 119/79 MM HG, HR 86 /MIN, RR 20 /MIN, TEMP 98 F, OXYGEN SAT % 91, SAFE IN ENV? (Y/N) YES, NA INITIALS CM 0841, REVIEWED BY: NL. EXAMINATION GENERAL EXAMINATION: GENERAL APPEARANCE:AWAKE,ALERT ,PLEAASANT . PSYCHAFFECT NORMAL . LUNGS:LUNG MOTT ARE CLEAR TO AUSCULTATION BILATERALLY. GOOD MOVEMENT OF AIR . HEART:S1, S2 IN A REGULAR RATE AND RHYTHM. NO SIGNIFICANT MURMURS, RUBS OR GALLOPS NOTED . ASSESSMENTS FIBROMYALGIA - M79.7 (PRIMARY) POLYARTICULAR ARTHRITIS - M13.0, SHE IS TREATED BY A DIRECTOR SPEECH LANGUAGE IN [place] FOR A COMBINATION OF APPARENT INFLAMMATORY ARTHRITIS AND FIBROMYALGIA. HER SYMPTOMS ARE STABLE. TREATMENT FIBROMYALGIA CONTINUE LYRICA CAPSULE, 200 MG, 1 CAPSULE, ORALLY, THREE TIMES A DAY CONTINUE TRAMADOL HCL TABLET, 50 MG, 1-2, ORALLY FOR PAIN, EVERY 12 HOURS NEEDED MDD4 START MELOXICAM TABLET, 15 MG, 1 TABLET, ORALLY, ONCE A DAY, 30 DAY(S), 30, REFILLS 5 NOTES: EDUCATION TEACHING SHEET HANDED TO PT ON MELOXICAM. PROCEDURE CODES FA211 ESTABILISHED PATIENT [facility]AC[facility] CHARGE DISPOSITION & COMMUNICATION FOLLOW UP 3 MONTHS ELECTRONICALLY SIGNED BY EDIE PITTS ON 12/21/2018 AT 09:40 AM EDT DISCLAIMER : THIS IS A VISIT SUMMARY EXTRACTED FROM THE [employer] CHART. IT IS NOT A COPY OF THE [employer] PROGRESS NOTE. ROJELIO
== END ==
LOC: M PAIN 08:30
PROVIDERS: ATTEND Nurse Practitioner Family
DX: M79.7 Fibromyalgia (principal); M13.0 Polyarthritis, unspecified; I10 Essential (primary) hypertension; G43.909 Migraine, unspecified, not intractable, without status migrainosus; Z86.59 Personal history of other mental and behavioral disorders; G47.33 Obstructive sleep apnea (adult) (pediatric); J44.9 Chronic obstructive pulmonary disease, unspecified; F17.210 Nicotine dependence, cigarettes, uncomplicated; Z88.6 Allergy status to analgesic agent; Z79.84 Long term (current) use of oral hypoglycemic drugs; Z79.899 Other long term (current) drug therapy

== ENCOUNTER → 2018-12-12 | Outpatient (CLI) | payer OTHER ==
--- NOTE | 2018-12-13 03:22 | REP ---
Clinical: Hypertension and chest pain . Comparison: 01/12/2005 . Technique: PA and lateral. Findings: The mediastinum and cardiac silhouette are normal. The lung davis are clear and without acute consolidation, effusion, or pneumothorax. The skeletal structures are intact and normal. Impression: 1. No acute cardiopulmonary process. Electronically Signed by Morales Tam MD 12/13/2018 03:13 A
== END ==
LOC: M SMT 08:58
PROVIDERS: ATTEND Internal Medicine Cardiovascular Disease
DX: R07.9 Chest pain, unspecified (principal); I10 Essential (primary) hypertension; F17.210 Nicotine dependence, cigarettes, uncomplicated

== ENCOUNTER → 2019-02-07 | Outpatient (CLI) | payer OTHER ==
--- NOTE | 2019-02-07 11:43 | REP ---
UNILATERAL RIGHT RIBS, PA CHEST: HISTORY: Strain. COMPARISON: 12/12/2018. The lungs are clear. The heart is normal in size. The pulmonary vasculature is normal in appearance. The bony structure is intact. IMPRESSION: No acute disease. Electronically Signed by Agus Higuera MD 02/07/2019 11:44 A
== END ==
LOC: M WUC 10:23
PROVIDERS: ATTEND Physician Assistant
DX: S29.012A Strain of muscle and tendon of back wall of thorax, initial encounter (principal); X58.XXXA Exposure to other specified factors, initial encounter; Y92.89 Other specified places as the place of occurrence of the external cause

== ENCOUNTER → 2019-02-21 | Outpatient (REF) | payer OTHER ==
[2019-02-21 16:06] LABS: ALBUMIN 2.9 GM/DL (3.2-5.2); ALT/SGPT 32 U/L (12-78); BILIRUBIN,TOTAL 0.1 MG/DL (0.2-1.0); BLOOD UREA NITROGEN 17 MG/DL (7-18); CALCIUM LEVEL 9.1 MG/DL (8.5-10.1); CARBON DIOXIDE LEVEL 30 MEQ/L (21-32); CHLORIDE LEVEL 105 MEQ/L (98-107); CREATININE FOR GFR 0.92 MG/DL (0.55-1.30); GLOMERULAR FILTRATION RATE > 60.0 (>58); GLUCOSE, FASTING 159 MG/DL (70-100); POTASSIUM SERUM 4.2 MEQ/L (3.5-5.1); SODIUM LEVEL 140 MEQ/L (136-145); TOTAL PROTEIN 6.8 GM/DL (6.4-8.2)
[2019-02-21 16:09] LABS: HEMOGLOBIN A1c 7.8 %
== END ==
LOC: M SFHCPLAZ 14:34
PROVIDERS: ATTEND Nurse Practitioner Adult Health
DX: E11.9 Type 2 diabetes mellitus without complications (principal)

== ENCOUNTER → 2019-03-13 | Outpatient (CLI) | payer OTHER ==
[~2019-03-13] MED LIST changes: -DULO1CAP3 PO; +DULO1CAP6 PO
--- NOTE | 2019-03-28 02:28 | ECWPNPC ---
PATIENT NAME: CARLTON SAENZ : 1975 GENDER: FEMALE VISIT DATE: 03/13/2019 DISCHARGE DATE: 03/13/1955 VISIT LOCKED DATE TIME: PHYSICIAN: ROSARIO SULLIVAN RESOURCE: ROSARIO SULLIVAN REASON FOR APPOINTMENT 1. GENERAL PAIN HISTORY OF PRESENT ILLNESS HISTORY OF PRESENT ILLNESS: HERE FOR F/U OF CHRONIC GENERALIZED JOINT PAIN.RATING PAIN VAS 9/10.FEELS SHE IS HAVING A FLARE UP LATELY MAINLY IN SHOULDERS.FINDING IT DIFFICULT TO GET OUT OF BED.HAD ER EVALUATION RECENTLY DUE TO SEVERE PAIN.DISCUSSED MEDICATION OPTIONS.HISTORY OF CHRONIC GENERALIZED JOINT PAIN.DESCRIBES PAIN CONTINUOUS,ACHING AND BURNING. PAIN THE PATIENT DESCRIBES THE PAIN... THE PATIENT DESCRIBES THE PAIN... FALL RISK SCREENING: SCREENING :NO FALLS REPORTED IN THE LAST YEAR CURRENT MEDICATIONS TAKING RIZATRIPTAN BENZOATE 10 MG TABLET 1 TABLET NEEDED ONE TIME ORALLY ONCE A DAY, NOTES: ESVIN [place] TAKING HYDROXYCHLOROQUINE SULFATE 200 MG TABLET 1 TABLET WITH FOOD OR MILK ORALLY TWICE DAILY, NOTES: DR. MICHAEL FAIRCHILD TAKING CITALOPRAM HYDROBROMIDE 20 MG TABLET TAKE ONE TABLET BY MOUTH EVERY DAY ORAL TAKING MIRAPEX 0.5 MG TABLET 1 TABLET ORALLY THREE TIMES A DAY TAKING OMEPRAZOLE 40 MG CAPSULE DELAYED RELEASE 1 CAPSULE ORALLY ONCE A DAY TAKING LISINOPRIL 5 MG TABLET 1 TABLET ORALLY ONCE A DAY TAKING FLUTICASONE PROPIONATE 50 MCG/ACT SUSPENSION 2 SPRAYS IN EACH NOSTRIL NASALLY ONCE A DAY TAKING MELOXICAM 15 MG TABLET 1 TABLET ORALLY ONCE A DAY TAKING ULTRA TEST STRIPS - STRIP DIRECTED IN VITRO E11.9 DAILY THREE DAYS PER WEEK AND PRN TAKING AZELASTINE HCL 0.1 % SOLUTION 1 PUFF IN EACH NOSTRIL NASALLY TWICE A DAY TAKING LYRICA 200 MG CAPSULE 1 CAPSULE ORALLY THREE TIMES A DAY TAKING LANCET DEVICE - MISCELLANEOUS DIRECTED TOPICALLY E11.9 BID 3 DAYS PER WEEK AND PRN TAKING OXYBUTYNIN CHLORIDE ER 15 MG TABLET EXTENDED RELEASE 24 HOUR 1 TABLET ORALLY ONCE A DAY TAKING DRISDOL 57209 UNIT CAPSULE 1 CAPSULE ORALLY WEEKLY TAKING TRAZODONE HCL 100 MG TABLET 1 TABLET AT BEDTIME ORALLY ONCE A DAY TAKING TRIAMCINOLONE ACETONIDE 0.1 % CREAM 1 APPLICATION TO AFFECTED AREA EXTERNALLY TWICE A DAY TO RASH ON LEGS TAKING TRAMADOL HCL 50 MG TABLET 1-2 ORALLY FOR PAIN EVERY 12 HOURS NEEDED MDD4 TAKING [id number]-CRT-HC 1 % OINTMENT 1 CM RIBBON INTO LEFT EYE OPHTHALMIC 4 TIMES PER DAY TAKING DOXYCYCLINE MONOHYDRATE 100 MG CAPSULE 1 CAPSULE ORALLY ONCE A DAY TAKING DIFLUCAN 150 MG TABLET 1 TAB ORALLY DIRECTED 1 TODAY THEN REPEAT X 1 IN TAKING METFORMIN HCL ER 500 MG TABLET EXTENDED RELEASE 24 HOUR 2 TABLETS ORALLY 2 TABS IN THE AM, 2 TAB AT SUPPER TAKING VENTOLIN HFA 108 (90 BASE) MCG/ACT AEROSOL SOLUTION INHALE TWO PUFFS BY MOUTH EVERY 6 HOURS NEEDED TAKING AIRDUO RESPICLICK 232/14 232-14 MCG/ACT AEROSOL POWDER BREATH ACTIVATED 1 PUFF INHALATION TWICE A DAY MEDICATION LIST REVIEWED AND RECONCILED WITH THE PATIENT PAST MEDICAL HISTORY HYPERTENSION OSTEOARTHRITIS OF SPINE/SHOULDERS MIGRAINES CERVICAL DYSPLASIA CHRONIC HEMATURIA (WAS SEEING UROLOGIST IN [place]) DEPRESSION/ANXIETY/PANIC DISORDER FOLLOWS WITH [facility]-DR. BETANCOURT LEFT SHOULDER PAIN WITH LEFT ARM WEAKNESS/NUMBNESS FOR > 1 YR (MRI HAS BEEN ORDERED BY NEURO) OVARAIN CYSTS HISTORY OF REFUSES FOLLOW UP 06/08/16 RANDA = CPAP ASTHMA/COPD PER PT QUESTION ANTIPHOSPHOLIPID SYNDROME, PER RHEUMATOLOGY NOTES ABDOMINAL WALL CELLULITIS FIBROMYALGIA FAMILY HISTGORY OF HEART DISEASE DAD AND BROTHER < 50 ALLERGIES NAPROXEN: UPSET STOMACH - SIDE EFFECTS SURGICAL HISTORY D&C X2 1989 APPENDECTOMY 05/2002 BTL 1999 APPROXIMATELY LEEP X2 FOR MYRON 3 2004 TVH DUE TO PROLAPSED UTERUS 09/2004 ABDOMINAL HERNIA REPAIR 2007 BILATERAL CARPAL TUNNEL AND RIGHT ELBOW ULNAR NERVE TRANSPOSITION 08/11/2016 FAMILY HISTORY FATHER: 47 YRS, HEART DISEASE, HTN MOTHER: ALIVE, HTN, DM-2, ASTHMA,COPD 01/2019 [place] AND STENTS X 4, PNEUMONIA, SIBLINGS: YOUNGEST BROTHER: CHF AND HTN DAUGHTER(S): ASTHMA/ALLERGIES/HEARING PROBLEMS MATERNAL UNCLE: RENAL CANCER MATERNAL AUNT: ALIVE, ONE WITH BREAST CANCER, MASTECTOMY, DX 60 5 BROTHER(S) , 1 SISTER(S) . 1 SON(S) , 2 DAUGHTER(S) . BREAST CANCER MOTHERS SIDE OF THE FAMILY- 2 AUNTS\\\\\\\\NKIDNEY CANCER MOTHERS SIDE OF THE FAMILY- 2 UNCLES. SOCIAL HISTORY GENERAL: TOBACCO USE ARE YOU A:CURRENT SMOKER ARE YOU INTERESTED IN QUITTING?NOT READY TO QUIT COUNSELED THE PATIENT ON SMOKING EFFECTS, EDUCATION [id number]/09/2019 HOW MANY CIGARETTES A DAY DO YOU SMOKE?07-25 PATIENT COUNSELED ON THE DANGERS OF TOBACCO USE AND URGED TO QUIT:12/07/2018 HIV / HEP-C SCREENING HIV TEST OFFERED TO PATIENT:YES DATE OFFERED:07/25/2018 TEST ACCEPTED:NO HEP-C TEST OFFERED TO PATIENT:YES DATE OFFERED:07/25/2018 REASON:PATIENT DECLINED TEST ACCEPTED:NO REASON:PATIENT DECLINED BROCHURE PROVIDED TO PATIENTNO 07/25/2018 DECLINED OTHERS AT HOME: SPOUSE, 1 CHILD AT HOME 2 OTHER CHILDREN ARE OUT OF HOME. HOUSING: OWNS HOME. EDUCATION 9TH GRADE, NO GED. DIET: REGULAR. LANGUAGE [place]. DOMESTIC VIOLENCE NONE. BMI CARE GOAL FOLLOW-UP ABOVE NORMAL BMI FOLLOW-UPWEIGHT MONITORING RECREATIONAL DRUG USE DRUG USE?NO PATIENT DENIES ABUSE OR MISSUSED OF ANY MEDICATION. PATIENT DENIES USE OF ANY ILLEGAL SUBSTANCE INCLUDING MARIJUANA OR COCAINE. EXERCISE: NO REGULAR EXERCISE. LEARNING BARRIERS / SPECIAL NEEDS CHANGE FROM LAST VISIT?YES BURN ON ABDOMEN BARRIERS TO LEARNING?NO HEARING IMPAIRED?NO VISION IMPAIRED?YES COGNITIVELY IMPAIRED?NO :CORRECTIVE LENSES READINESS TO LEARN?YES LEARNING PREFERENCES?NO LEARNING CAPABILITIES PRESENT?YES EMOTIONAL BARRIERS?NO SPECIAL DEVICES?NO PAIN CLINIC PFS, CLERGY, PUBLIC HEALTH REFERRALS HAS THE PATIENT BEEN EDUCATED REGARDING HIS/HER PLAN OF CARE?YES HAS THE PATIENT BEEN EDUCATED REGARDING PAIN, THE RISK FOR PAIN, THE IMPORTANCE OF EFFECTIVE PAIN MANAGEMENT, AND THE PAIN ASSESSMENT PROCESS?YES LATEX QUESTIONNAIRE LATEX ALLERGY : HAVE YOU EVER DEVELOPED ANY TYPE OF REACTION AFTER HANDLING LATEX PRODUCTS SUCH RUBBER GLOVES, CONDOMS, DIAPHRAGMS, BALLOONS, SOCKS, OR UNDERWEAR?NO LATEX ALLERGY : HAVE YOU EVER DEVELOPED ANY TYPE OF REACTION DURING OR AFTER DENTAL APPOINTMENT, VAGINAL/RECTAL EXAMINATION, SURGICAL PROCEDURE, OR ANY OTHER EXPOSURE?NO DATE ASKED : 12/06/2018 LATEX RISK : HAVE YOU EVER HAD ANY DIFFICULTY BREATHING OR HIVES AFTER EATING OR HANDLING ANY FRUITS, OR VEGETABLES; SUCH KIWI, BANANAS, STONE FRUITS, OR CHESTNUTSNO LATEX RISK : DO YOU HAVE A PREVIOUS PERSONAL HISTORY OF MORE THAN NINE SURGERIES, SPINA BIFIDA, OR REPEATED CATHERIZATIONS? NO LATEX RISK : ARE YOU FREQUENTLY EXPOSED TO LATEX PRODUCTS IN YOUR OCCUPATION?NO CAFFEINE CAFFEINE USE?YES COFFEE = 2 CUPS PER DAY HOW OFTEN AND HOW MUCH? 1-2 COFFEES PER DAY 16OZ OF SODA PER DAY ADVANCE DIRECTIVE ADVANCE DIRECTIVE DISCUSSED WITH PATIENT:YES 03/13/19 OFFERED AND REFUSED NLJ TAOISM TAOISM NONE MARITAL STATUS: . ALCOHOL SCREENING DID YOU HAVE A DRINK CONTAINING ALCOHOL IN THE PAST YEAR?NO POINTS0 INTERPRETATIONNEGATIVE OCCUPATION: UNEMPLOYED "[employer] DID PAPER WORK" TRIED FOR MEDICAL DISABLILITY 4 TIMES DENIED.. SEXUAL HX HAD SEX IN THE LAST 12 MONTHS (VAGINAL, ORAL, OR ANAL)?YES WITHMEN ONLY USE PROTECTION?NO HAVE YOU EVER HAD AN STD?NO HOSPITALIZATION/MAJOR DIAGNOSTIC PROCEDURE SX RELATED REVIEW OF SYSTEMS REVIEWED BY: PROVIDER: ROSARIO IRIZARRY . CONSTITUTIONAL: ANY CHANGE IN YOUR MEDICAL CONDITION? NO . CHILLS NO . FEVER NO . INFECTION: DO YOU HAVE NEW INFECTIONS? NO . DO YOU HAVE HISTORY OF MRSA? NO . MUSCULOSKELETAL: ANY NEW PATTERNS OF PAIN OR NUMBNESS? YES- STATES RIGHT LEG NUMBNESS AND TINGLING IS GETTING WORSE . GASTROENTEROLOGY: ANY NEW CHANGE IN BOWEL CONTROL? NO . GENITOURINARY: ANY NEW CHANGE IN BLADDER CONTROL? YES- PATIENT STATES LOSS OF CONTROL ALL THE TIME WHEN STANDING, STATES SHE IS TAKING MEDS BUT THEY ARE NOT WORKING . IS THERE A CHANCE YOU COULD BE ? NO . HEMATOLOGY/LYMPH: DO YOU TAKE ANY BLOOD THINNERS? (FOR EXAMPLE- COUMADIN, PLAVIX, AGGRENOX, PLATEL, PRADAXA, OR XARELTO) NO . WHEN WAS YOUR LAST DOSE? DATE: TIME: . NEUROLOGY: HAVE YOU FALLEN IN THE PAST 12 MONTHS? NO . ANY NEW EXTREMITY NUMBNESS OR WEAKNESS? NO . CARDIOLOGY: DO YOU HAVE A PACEMAKER OR DEFIBRILLATOR? NO . RESPIRATORY: HAVE YOU BEEN SICK IN THE PAST WEEK? NO . FEVER NO . FLU LIKE SYMPTOMS? NO . COUGH NO . INTEGUMENTARY: DO YOU HAVE ANY RASHES OR OPEN SORES? NO . ALLERGIC/IMMUNO: ARE YOU ALLERGIC TO IV DYE? NO . ANY NEW ALLERGIES? NO . PSYCHIATRIC: DO YOU HAVE THOUGHTS OF HURTING YOURSELF OR SOMEONE ELSE? NO . ARE YOU ABUSED, NEGLECTED, OR IN AN UNSAFE ENVIRONMENT? NO . ENDOCRINOLOGY: ARE YOU DIABETIC? YES . OTHER: DO YOU NEED ANY PRESCRIPTIONS? NO . IF YES, PLEASE LIST: ____ . ANY NEW PROBLEMS WITH YOUR MEDICATIONS? NO . WHEN DID YOU LAST EAT? ____ . WHEN DID YOU LAST DRINK? ____ . WHAT DID YOU LAST DRINK? ____ . NAME OF PERSON DRIVING YOU HOME? ____ . DO YOU HAVE ANY OTHER QUESTIONS OR CONCERNS YES- STATES BILATERALLY FINGERS ARE LOCLING UP . VITAL SIGNS WT 228.8 LBS, HT 66 IN, BMI 36.93 INDEX, BP 117/68 MM HG, HR 87 /MIN, RR 18 /MIN, TEMP 97.1 F, OXYGEN SAT % 94%, SAFE IN ENV? (Y/N) YES, NA INITIALS FL 08:48. EXAMINATION GENERAL EXAMINATION: GENERAL AWAKE,ALERT ,PLEAASANT . PSYCH AFFECT NORMAL . LUNGS: LUNG MOTT ARE CLEAR TO AUSCULTATION BILATERALLY. GOOD MOVEMENT OF AIR . HEART: S1, S2 IN A REGULAR RATE AND RHYTHM. NO SIGNIFICANT MURMURS, RUBS OR GALLOPS NOTED . MUSCULOSKELETAL: TRIGGER POINTS:NOTED OVER SHOULDERS AND UPPER BACK/NECK. ASSESSMENTS FIBROMYALGIA - M79.7 (PRIMARY) PAIN IN RIGHT SHOULDER - M25.511 PAIN IN LEFT SHOULDER - M25.512 OTHER CHRONIC PAIN - G89.29 TREATMENT FIBROMYALGIA START KETOROLAC TROMETHAMINE TABLET, 10 MG, 1 TABLET WITH FOOD OR MILK NEEDED, ORALLY, EVERY 6 HRS, 5 DAY(S), 20, REFILLS 0 STOP MELOXICAM TABLET, 15 MG, 1 TABLET, ORALLY, ONCE A DAY CONTINUE TRAMADOL HCL TABLET, 50 MG, 1-2, ORALLY FOR PAIN, EVERY 12 HOURS NEEDED MDD4 CONTINUE LYRICA CAPSULE, 200 MG, 1 CAPSULE, ORALLY, THREE TIMES A DAY NOTES: REFER TO [facility] FOR CHRONIC SHOULDER PAIN L>R., ISTOP REGISTRY REVIEWED AND DEMONSTRATES COMPLLIANCE. (REF # ) BRINGS IN MEDICATIONS WHICH IS APPROPRIATE FOR WHAT WAS DISPENSED. URINE TOX [facility] NARCOTIC AGREEMENT WAS REVIEWED AND SIGNED TODAY BY THE PATIENT. SEE ATTACHED DOCUMENT FOR FULL DETAILS; SPECIFIC ISSUES WERE REVIEWED: 1) KEEP PAIN MEDS IN THEIR ORIGINAL BOTTLES AND ANY WEEKLY PLANNERS ARE TO BE BROUGHT TO THE PAIN CENTER AT EVERY VISIT. 2) THE PATIENT IS NOT TO INCREASE DOSING OR TIMING OF THEIR PAIN MEDICATION WITHOUT SPECIFIC DIRECTION OF THEIR PAIN CENTERPROVIDER (NOT ER OR OTHER PROVIDERS). 3) ALL PAIN MEDS ARE TO BE KEPT SECURED, IN A LOCKED BOX. 4) NO PAIN MEDS ARE TO BE SHARED WITH ANY OTHER PERSON FOR ANY REASON. 5) NO PAIN MEDS MAY BE TAKEN FROM ANY FRIENDS OR RELATIVES FOR ANY REASON 6) NO MEDS OR SUBSTANCES WHICH ARE NOT LEGAL ARE TO BE USED- NO MARIJUANA, NO COCAINE, AMPHETAMINES, HEROIN, OR OTHERS ARE EVER TO BE USED. 7)URINE TESTING IS DONE TO ACCOUNT FOR MEDS AND SUBSTANCES BEING TAKEN AND WILL BE DONE RANDOMLY., RISKS AND BENEFITS OF NARCOTIC/OPIOD MEDICATIONS WERE REVIEWED WITH PATIENT - THIS INCLUDES BUT IS NOT LIMITED TO RISK OF DEPENDANCE/DEVELOPMENT OF ADDICTION, MOOD DISTURBANCE AND DEPRESSION, OSTEOPOROSIS, HORMONAL AND LABIDAL CHANGES, RESPIRATORY DEPRESSION AND . PATIENT IS ADVISED NOT TO DRIVE OR DRINK ALCOHOL WHILE ON THESE MEDICATIONS. PROCEDURE CODES FA211 ESTABILISHED PATIENT [facility] CHARGE DISPOSITION & COMMUNICATION FOLLOW UP 2 MONTHS (REASON: MED MGMNT) ELECTRONICALLY SIGNED BY EDIE PITTS ON 03/26/2019 AT 08:27 AM EDT DISCLAIMER : THIS IS A VISIT SUMMARY EXTRACTED FROM THE [employer]ICAL[employer] CHART. IT IS NOT A COPY OF THE [employer]ICAL[employer] PROGRESS NOTE. ROJELIO
== END ==
LOC: M PAIN 08:45
PROVIDERS: ATTEND Nurse Practitioner Family
DX: G89.29 Other chronic pain (principal); M79.7 Fibromyalgia; M25.511 Pain in right shoulder; M25.512 Pain in left shoulder; I10 Essential (primary) hypertension; M19.011 Primary osteoarthritis, right shoulder; M19.012 Primary osteoarthritis, left shoulder; G43.909 Migraine, unspecified, not intractable, without status migrainosus; F32.9 Major depressive disorder, single episode, unspecified; F41.9 Anxiety disorder, unspecified; G47.33 Obstructive sleep apnea (adult) (pediatric); J44.9 Chronic obstructive pulmonary disease, unspecified; F17.210 Nicotine dependence, cigarettes, uncomplicated; Z79.1 Long term (current) use of non-steroidal anti-inflammatories (NSAID); Z79.891 Long term (current) use of opiate analgesic; Z79.899 Other long term (current) drug therapy; Z79.84 Long term (current) use of oral hypoglycemic drugs; Z88.6 Allergy status to analgesic agent

== ENCOUNTER → 2019-04-03 | Outpatient (REF) | payer OTHER, MEDICAID ==
[2019-04-03 14:40] LABS: BASO # 0.1 10^3/uL (0.0-0.2); BASO % 0.7 % (0.0-1.0); EOS # 0.4 10^3/uL (0.0-0.50); EOS % 3.6 % (0.0-3.0); HEMATOCRIT 38.8 % (36.0-47.0); HEMOGLOBIN 12.5 g/dl (12.0-15.5); LYMPH # 2.7 10^3/uL (1.5-4.5); LYMPH % 24.7 % (24.0-44.0); MEAN CORPUSCULAR HEMOGLOBIN 26.7 pg (27.0-33.0); MEAN CORPUSCULAR HGB CONC 32.2 g/dl (32.0-36.5); MEAN CORPUSCULAR VOLUME 82.9 fl (80.0-96.0); MONO # 0.8 10^3/uL (0.0-0.8); MONO % 7.4 % (0.0-5.0); NEUTROPHILS # 6.8 10^3/uL (1.8-7.7); NEUTROPHILS % 63.3 % (36.0-66.0); PLATELET COUNT, AUTOMATED 317 10^3/uL (150-450); RED BLOOD COUNT 4.68 10^6/uL (4.00-5.40); THYROID STIMULATING HORMONE 2.76 uIU/ML (0.358-3.740); WHITE BLOOD COUNT 10.7 10^3/uL (4.0-10.0)
[2019-04-03 14:41] LABS: FOLATE 10.3 NG/ML (>5.4)
== END ==
LOC: M LABNEURO 10:11
PROVIDERS: ATTEND Physician Assistant Medical
DX: R51 Headache (principal)

== ENCOUNTER → 2019-04-11 | Outpatient (REF) | payer OTHER, MEDICAID | LOC: M SFHCPLAZ 17:03 | PROVIDERS: ATTEND Nurse Practitioner Family | DX: L02.412 Cutaneous abscess of left axilla (principal) ==

== ENCOUNTER → 2019-05-17 | Outpatient (CLI) | payer OTHER ==
[~2019-05-17] MED LIST changes: +AIRD1INH3 INH; +CITA20TA6 PO; +LISI-542 PO; +LYRI200C PO; +METF500T13 PO; +MIRA0.5T PO; -OMEP40CA2 PO; +OMEP40CA97 PO; +OXYB15TA14 PO; +TRAZ-189 PO; +VENTAER INH; +VITA50005 PO
--- NOTE | 2019-05-18 01:43 | ECWPNPC ---
PATIENT NAME: CARLTON SAENZ : 1975 GENDER: FEMALE VISIT DATE: 05/17/2019 DISCHARGE DATE: 05/17/19 1018 VISIT LOCKED DATE TIME: PHYSICIAN: ROSARIO SULLIVAN RESOURCE: ROSARIO SULLIVAN REASON FOR APPOINTMENT 1. MED MGMT, 2 MONTHS HISTORY OF PRESENT ILLNESS HISTORY OF PRESENT ILLNESS: HERE FOR F/U OF CHRONIC GENERALIZED JOINT PAIN.USING TENS FOR SHOULDER PAIN AND THAT HAS BEEN HELPFUL.FOLLOWS WITH DR RODRIGUEZ IN [place]-RHEUMATOLOGY FOR CONNECTIVE TISSUE DISORDER.FOLLOWING WITH UROLOGY FOR URINARY INCONTINENCE AND WILL BE STARTING BOTOX FOR THIS WITH UROLOGY.REPORTING INCIDENT OF SEVERE LBP AND HIP PAIN WITH LOWER EXTREMITY WEAKNESS 1 WEEK AGO AND HAD TO USE A WALKER TO GET AROUND FOR 1 WEEK.COMPLAINING OF RIGHT KNEE PAIN AND INSTABILITY.RATING PAIN VAS 9/10. PAIN THE PATIENT DESCRIBES THE PAIN... FALL RISK SCREENING: SCREENING :NO FALLS REPORTED IN THE LAST YEAR CURRENT MEDICATIONS TAKING RIZATRIPTAN BENZOATE 10 MG TABLET 1 TABLET NEEDED ONE TIME ORALLY ONCE A DAY, NOTES: ESVIN [place] TAKING HYDROXYCHLOROQUINE SULFATE 200 MG TABLET 1 TABLET WITH FOOD OR MILK ORALLY TWICE DAILY, NOTES: DR. RODRIGUEZ RHEUMATOLOGY MCGRANN TAKING CITALOPRAM HYDROBROMIDE 20 MG TABLET TAKE ONE TABLET BY MOUTH EVERY DAY ORAL TAKING MIRAPEX 0.5 MG TABLET 1 TABLET ORALLY THREE TIMES A DAY TAKING OMEPRAZOLE 40 MG CAPSULE DELAYED RELEASE 1 CAPSULE ORALLY ONCE A DAY TAKING LISINOPRIL 5 MG TABLET 1 TABLET ORALLY ONCE A DAY TAKING OXYBUTYNIN CHLORIDE ER 15 MG TABLET EXTENDED RELEASE 24 HOUR 1 TABLET ORALLY ONCE A DAY TAKING DRISDOL 72624 UNIT CAPSULE 1 CAPSULE ORALLY WEEKLY TAKING TRAZODONE HCL 100 MG TABLET 1 TABLET AT BEDTIME ORALLY ONCE A DAY TAKING TRIAMCINOLONE ACETONIDE 0.1 % CREAM 1 APPLICATION TO AFFECTED AREA EXTERNALLY TWICE A DAY TO RASH ON LEGS TAKING METFORMIN HCL ER 500 MG TABLET EXTENDED RELEASE 24 HOUR 2 TABLETS ORALLY 2 TABS IN THE AM, 2 TAB AT SUPPER TAKING VENTOLIN HFA 108 (90 BASE) MCG/ACT AEROSOL SOLUTION INHALE TWO PUFFS BY MOUTH EVERY 6 HOURS NEEDED TAKING AIRDUO RESPICLICK 232/14 232-14 MCG/ACT AEROSOL POWDER BREATH ACTIVATED 1 PUFF INHALATION TWICE A DAY TAKING KETOROLAC TROMETHAMINE 10 MG TABLET 1 TABLET WITH FOOD OR MILK NEEDED ORALLY EVERY 6 HRS TAKING LYRICA 200 MG CAPSULE 1 CAPSULE ORALLY THREE TIMES A DAY TAKING LANCET DEVICE - MISCELLANEOUS DIRECTED TOPICALLY E11.9 BID 3 DAYS PER WEEK AND PRN TAKING ULTRA TEST STRIPS - STRIP DIRECTED IN VITRO E11.9 DAILY THREE DAYS PER WEEK AND PRN TAKING GLUCOMETER _ DIRECTED DX: E11.9 FOR TESTING BLOOD GLUCOSE 3 TIMES A WEEK AND PRN TAKING LANCETS 30G - MISCELLANEOUS 1 LANCET DELICA FOR ONE TOUCH DX CODE E11.9 DAILY TAKING TRAMADOL HCL 50 MG TABLET 1-2 ORALLY FOR PAIN EVERY 12 HOURS NEEDED MDD4 NOT-TAKING AZELASTINE HCL 0.1 % SOLUTION 1 PUFF IN EACH NOSTRIL NASALLY TWICE A DAY NEEDED NOT-TAKING FLUTICASONE PROPIONATE 50 MCG/ACT SUSPENSION 2 SPRAYS IN EACH NOSTRIL NASALLY ONCE A DAY NOT-TAKING CLINDAMYCIN PHOSPHATE 1 % GEL 1 APPLICATION TO AFFECTED AREA EXTERNALLY TO LEFT AXILLA TWICE DAILY NOT-TAKING HIBICLENS 4 % LIQUID DIRECTED TO AXILLA EXTERNALLY DAILY NOT-TAKING DIFLUCAN 150 MG TABLET 1 TAB ORALLY DIRECTED 1 TODAY THEN REPEAT X 1 IN MEDICATION LIST REVIEWED AND RECONCILED WITH THE PATIENT PAST MEDICAL HISTORY HYPERTENSION OSTEOARTHRITIS OF SPINE/SHOULDERS MIGRAINES CERVICAL DYSPLASIA CHRONIC HEMATURIA ([place] SEEING [place]OLOGIST [place] ) DEPRESSION/ANXIETY/PANIC DISORDER FOLLOWS WITH [facility]-DR. BETANCOURT LEFT SHOULDER PAIN WITH LEFT ARM WEAKNESS/NUMBNESS FOR > 1 YR (MRI HAS BEEN ORDERED BY NEURO) OVARAIN CYSTS HISTORY OF REFUSES FOLLOW UP 06/08/16 RANDA = CPAP ASTHMA/COPD PER PT QUESTION ANTIPHOSPHOLIPID SYNDROME, PER RHEUMATOLOGY NOTES ABDOMINAL WALL CELLULITIS FIBROMYALGIA FAMILY HISTGORY OF HEART DISEASE DAD AND BROTHER < 50 ALLERGIES NAPROXEN: UPSET STOMACH - SIDE EFFECTS SURGICAL HISTORY D&C X2 1989 APPENDECTOMY 05/2002 BTL 1999 APPROXIMATELY LEEP X2 FOR MYRON 3 2003 TVH DUE TO PROLAPSED UTERUS 09/2004 ABDOMINAL HERNIA REPAIR 2008 BILATERAL CARPAL TUNNEL AND RIGHT ELBOW ULNAR NERVE TRANSPOSITION 08/11/2016 CYSTOSCOPY, HYDRODISTENTION, BLADDER BIOPSIES, INTRAVESICAL BOTOX-DR. TALBOT 05/28/2019 FAMILY HISTORY FATHER: 47 YRS, HEART DISEASE, HTN MOTHER: ALIVE, HTN, DM-2, ASTHMA,COPD 01/2019 [place] AND STENTS X 4, PNEUMONIA, SIBLINGS: YOUNGEST BROTHER: CHF AND HTN DAUGHTER(S): ASTHMA/ALLERGIES/HEARING PROBLEMS MATERNAL UNCLE: RENAL CANCER MATERNAL AUNT: ALIVE, ONE WITH BREAST CANCER, MASTECTOMY, DX 60 5 BROTHER(S) , 1 SISTER(S) . 1 SON(S) , 2 DAUGHTER(S) . BREAST CANCER MOTHERS SIDE OF THE FAMILY- 2 AUNTS\\\\\\\\NKIDNEY CANCER MOTHERS SIDE OF THE FAMILY- 2 UNCLES. SOCIAL HISTORY GENERAL: TOBACCO USE ARE YOU A:CURRENT SMOKER ARE YOU INTERESTED IN QUITTING?NOT READY TO QUIT COUNSELED THE PATIENT ON SMOKING EFFECTS, EDUCATION [id number]/07/2019 HOW MANY CIGARETTES A DAY DO YOU SMOKE?07-25 PATIENT COUNSELED ON THE DANGERS OF TOBACCO USE AND URGED TO QUIT:05/17/2019 SMOKING CESSATION INFORMATION GIVEN04/11/2019 HIV / HEP-C SCREENING HIV TEST OFFERED TO PATIENT:YES DATE OFFERED:07/25/2018 TEST ACCEPTED:NO HEP-C TEST OFFERED TO PATIENT:YES DATE OFFERED:07/25/2018 REASON:PATIENT DECLINED TEST ACCEPTED:NO REASON:PATIENT DECLINED BROCHURE PROVIDED TO PATIENTNO 07/25/2018 DECLINED OTHERS AT HOME: SPOUSE, 1 CHILD AT HOME 2 OTHER CHILDREN ARE OUT OF HOME. HOUSING: OWNS HOME. EDUCATION 9TH GRADE, NO GED. DIET: REGULAR. LANGUAGE LANGUAGES SPOKEN:FREN[place] DOMESTIC VIOLENCE NONE. BMI CARE GOAL FOLLOW-UP ABOVE NORMAL BMI FOLLOW-UPWEIGHT MONITORING RECREATIONAL DRUG USE DRUG USE?NO PATIENT DENIES ABUSE OR MISSUSED OF ANY MEDICATION. PATIENT DENIES USE OF ANY ILLEGAL SUBSTANCE INCLUDING MARIJUANA OR COCAINE. EXERCISE: NO REGULAR EXERCISE. LEARNING BARRIERS / SPECIAL NEEDS CHANGE FROM LAST VISIT?NO BARRIERS TO LEARNING?NO HEARING IMPAIRED?NO VISION IMPAIRED?YES COGNITIVELY IMPAIRED?NO :CORRECTIVE LENSES READINESS TO LEARN?YES LEARNING PREFERENCES?NO LEARNING CAPABILITIES PRESENT?YES EMOTIONAL BARRIERS?NO SPECIAL DEVICES?NO DROPPER TANK STORAGE NEEDED?NO PAIN CLINIC PFS, CLERGY, PUBLIC HEALTH REFERRALS HAS THE PATIENT BEEN EDUCATED REGARDING HIS/HER PLAN OF CARE?YES HAS THE PATIENT BEEN EDUCATED REGARDING PAIN, THE RISK FOR PAIN, THE IMPORTANCE OF EFFECTIVE PAIN MANAGEMENT, AND THE PAIN ASSESSMENT PROCESS?YES LATEX QUESTIONNAIRE LATEX ALLERGY : HAVE YOU EVER DEVELOPED ANY TYPE OF REACTION AFTER HANDLING LATEX PRODUCTS SUCH RUBBER GLOVES, CONDOMS, DIAPHRAGMS, BALLOONS, SOCKS, OR UNDERWEAR?NO LATEX ALLERGY : HAVE YOU EVER DEVELOPED ANY TYPE OF REACTION DURING OR AFTER DENTAL APPOINTMENT, VAGINAL/RECTAL EXAMINATION, SURGICAL PROCEDURE, OR ANY OTHER EXPOSURE?NO DATE ASKED : 03/28/2019 LATEX RISK : HAVE YOU EVER HAD ANY DIFFICULTY BREATHING OR HIVES AFTER EATING OR HANDLING ANY FRUITS, OR VEGETABLES; SUCH KIWI, BANANAS, STONE FRUITS, OR CHESTNUTSNO LATEX RISK : DO YOU HAVE A PREVIOUS PERSONAL HISTORY OF MORE THAN NINE SURGERIES, SPINA BIFIDA, OR REPEATED CATHERIZATIONS? NO LATEX RISK : ARE YOU FREQUENTLY EXPOSED TO LATEX PRODUCTS IN YOUR OCCUPATION?NO CAFFEINE CAFFEINE USE?YES COFFEE = 1/2 CUP ADVANCE DIRECTIVE ADVANCE DIRECTIVE DISCUSSED WITH PATIENT:YES 03/13/19 OFFERED AND REFUSED [facility] ORIENTAL ORTHODOX [id number] NONE NONE MARITAL STATUS: . ALCOHOL SCREENING DID YOU HAVE A DRINK CONTAINING ALCOHOL IN THE PAST YEAR?NO POINTS0 INTERPRETATIONNEGATIVE OCCUPATION: UNEMPLOYED "[employer] DID PAPER WORK" TRIED FOR MEDICAL DISABLILITY 4 TIMES DENIED.. SEXUAL HX HAD SEX IN THE LAST 12 MONTHS (VAGINAL, ORAL, OR ANAL)?YES WITHMEN ONLY USE PROTECTION?NO HAVE YOU EVER HAD AN STD?NO REVIEWED WITH PATIENT 05/17/19 0942 [facility]. HOSPITALIZATION/MAJOR DIAGNOSTIC PROCEDURE SX RELATED REVIEW OF SYSTEMS REVIEWED BY: PROVIDER: ROSARIO IRIZARRY . CONSTITUTIONAL: ANY CHANGE IN YOUR MEDICAL CONDITION? NO . CHILLS NO . FEVER NO . INFECTION: DO YOU HAVE NEW INFECTIONS? NO . DO YOU HAVE HISTORY OF MRSA? NO . MUSCULOSKELETAL: ANY NEW PATTERNS OF PAIN OR NUMBNESS? YES- INCREASED PAIN, NUMBNESS AND TINGLING ACCROSS LOWER BACK AND DOWN INTO BILATERAL LOWER EXTREMITIES . GASTROENTEROLOGY: ANY NEW CHANGE IN BOWEL CONTROL? NO . GENITOURINARY: ANY NEW CHANGE IN BLADDER CONTROL? YES- WILL BE HAVING BLADDER PROCEDURE 05/28/19 . IS THERE A CHANCE YOU COULD BE ? NO . HEMATOLOGY/LYMPH: DO YOU TAKE ANY BLOOD THINNERS? (FOR EXAMPLE- COUMADIN, PLAVIX, AGGRENOX, PLATEL, PRADAXA, OR XARELTO) NO . WHEN WAS YOUR LAST DOSE? DATE: TIME: . NEUROLOGY: HAVE YOU FALLEN IN THE PAST 12 MONTHS? NO . ANY NEW EXTREMITY NUMBNESS OR WEAKNESS? YES- STATES RIGHT KNEE HAS BEEN GIVING OUT ON HER NAD STATES SHE HAS ALSO HAD INCREASED PAIN, NUMBNESS AND TINGLIG IN BLE . CARDIOLOGY: DO YOU HAVE A PACEMAKER OR DEFIBRILLATOR? NO . RESPIRATORY: HAVE YOU BEEN SICK IN THE PAST WEEK? NO . FEVER NO . FLU LIKE SYMPTOMS? NO . COUGH NO . INTEGUMENTARY: DO YOU HAVE ANY RASHES OR OPEN SORES? NO . ALLERGIC/IMMUNO: ARE YOU ALLERGIC TO IV DYE? NO . ANY NEW ALLERGIES? NO . PSYCHIATRIC: DO YOU HAVE THOUGHTS OF HURTING YOURSELF OR SOMEONE ELSE? NO . ARE YOU ABUSED, NEGLECTED, OR IN AN UNSAFE ENVIRONMENT? NO . ENDOCRINOLOGY: ARE YOU DIABETIC? YES . OTHER: DO YOU NEED ANY PRESCRIPTIONS? YES . IF YES, PLEASE LIST: ____TRAMADOL . ANY NEW PROBLEMS WITH YOUR MEDICATIONS? NO . WHEN DID YOU LAST EAT? ____ . WHEN DID YOU LAST DRINK? ____ . WHAT DID YOU LAST DRINK? ____ . NAME OF PERSON DRIVING YOU HOME? ____ . DO YOU HAVE ANY OTHER QUESTIONS OR CONCERNS YES- RIGHT KNEE HAS BEEN GIVING OUT AND HAS ALSO HAD INCREASED PAIN IN BLE . VITAL SIGNS WT 236.0 LBS, HT 66 IN, BMI 38.09 INDEX, BP 130/66 MM HG, HR 89 /MIN, RR 18 /MIN, TEMP 96.7 F, OXYGEN SAT % 95%, SAFE IN ENV? (Y/N) YES, NA INITIALS AW 0934, REVIEWED BY: JENI. EXAMINATION GENERAL EXAMINATION: GENERALAWAKE,ALERT ,PLEAASANT . PSYCHAFFECT NORMAL . LUNGS:LUNG MOTT ARE CLEAR TO AUSCULTATION BILATERALLY. GOOD MOVEMENT OF AIR . HEART:S1, S2 IN A REGULAR RATE AND RHYTHM. NO SIGNIFICANT MURMURS, RUBS OR GALLOPS NOTED . ASSESSMENTS FIBROMYALGIA - M79.7 (PRIMARY) OTHER CHRONIC PAIN - G89.29 INFLAMMATORY ARTHRITIS - M19.90 TREATMENT FIBROMYALGIA NOTES: REFER TO JIGNESH CAMARGO TO SEE IF SHE IS ELIGIBLE FOR RIGHT KNEE SUPPORT. REFERRAL TO:[facility] REASON:CHRONIC GENERALIZED PAIN ASSOCIATED WITH INFLAMMATORY ARTHROPATHY PROCEDURE CODES FA211 ESTABILISHED PATIENT [facility] FACILITY CHARGE DISPOSITION & COMMUNICATION FOLLOW UP NO F/U (REASON: REFER TO JIGNESH CAMARGO TO SEE IF SHE IS ELIGIBLE FOR RIGHT KNEE SUPPORT) ELECTRONICALLY SIGNED BY EDIE PITTS ON 05/17/2019 AT 02:29 PM EDT DISCLAIMER : THIS IS A VISIT SUMMARY EXTRACTED FROM THE [employer] CHART. IT IS NOT A COPY OF THE [employer] PROGRESS NOTE. MTDD
== END ==
LOC: M PAIN 09:30
PROVIDERS: ATTEND Nurse Practitioner Family
DX: M79.7 Fibromyalgia (principal); G89.29 Other chronic pain; M19.90 Unspecified osteoarthritis, unspecified site; I10 Essential (primary) hypertension; G43.909 Migraine, unspecified, not intractable, without status migrainosus; E11.9 Type 2 diabetes mellitus without complications; Z86.59 Personal history of other mental and behavioral disorders; G47.33 Obstructive sleep apnea (adult) (pediatric); F17.210 Nicotine dependence, cigarettes, uncomplicated; Z88.6 Allergy status to analgesic agent; Z79.84 Long term (current) use of oral hypoglycemic drugs; Z79.899 Other long term (current) drug therapy

== ENCOUNTER → 2019-05-18 | Outpatient (REF) | payer OTHER ==
[~2019-05-18] MED LIST changes: +OMEP40CA2 PO; -OMEP40CA97 PO; +OXYB15TA PO; -OXYB15TA14 PO
[2019-05-18 13:13] LABS: BACTERIA, URINE AUTO NEGATIVE (NEGATIVE); MUCUS, URINE SMALL (NEGATIVE); RBC, URINE AUTO 1 /HPF (0-3); SQUAMOUS EPITHELIAL CELL UR AU 0 /HPF (0-6); WBC, URINE AUTO 1 /HPF (0-3)
== END ==
LOC: M SMT 12:58
PROVIDERS: ATTEND Specialist
DX: E11.9 Type 2 diabetes mellitus without complications (principal)

== ENCOUNTER → 2019-05-23 | Outpatient (CLI) | payer OTHER ==
[2019-05-23 18:47] LABS: HEMATOCRIT 39.5 % (36.0-47.0); HEMOGLOBIN 12.8 g/dl (12.0-15.5); MEAN CORPUSCULAR HEMOGLOBIN 27.5 pg (27.0-33.0); MEAN CORPUSCULAR HGB CONC 32.4 g/dl (32.0-36.5); MEAN CORPUSCULAR VOLUME 84.9 fl (80.0-96.0); PLATELET COUNT, AUTOMATED 298 10^3/uL (150-450); RED BLOOD COUNT 4.65 10^6/uL (4.00-5.40); WHITE BLOOD COUNT 11.5 10^3/uL (4.0-10.0)
[2019-05-23 18:55] LABS: ALT/SGPT 20 U/L (12-78); BILIRUBIN,TOTAL 0.2 MG/DL (0.2-1.0); BLOOD UREA NITROGEN 13 MG/DL (7-18); CALCIUM LEVEL 9.2 MG/DL (8.5-10.1); CARBON DIOXIDE LEVEL 26 MEQ/L (21-32); CHLORIDE LEVEL 103 MEQ/L (98-107); GLOMERULAR FILTRATION RATE > 60.0 (>58); GLUCOSE, FASTING 255 MG/DL (70-100); POTASSIUM SERUM 4.3 MEQ/L (3.5-5.1); SODIUM LEVEL 136 MEQ/L (136-145); TOTAL PROTEIN 6.7 GM/DL (6.4-8.2)
== END ==
LOC: M SMT 13:06
PROVIDERS: ATTEND Specialist
DX: E11.9 Type 2 diabetes mellitus without complications (principal)

== ENCOUNTER 2019-05-28 05:58 | Day surgery (SDC) | payer OTHER ==
[~2019-05-28] VITALS: Ht 165.1 cm; Wt 103.9 kg
[~2019-05-28 05:58] MED LIST changes: -OMEP40CA2 PO; +OMEP40CA97 PO; -OXYB15TA PO; +OXYB15TA14 PO
[2019-05-28] MEDS ORDERED: LIDOCAINE 1% MDV 20ML VIAL SQ PRN (06:00)
[2019-05-28] MEDS ORDERED: LR 1,000 ML IV ONE (06:00)
[2019-05-28] MEDS ORDERED: ceFAZolin SOD 2 GM in IV 1 EA IV ONE (06:00)
[2019-05-28] MEDS ORDERED: dexameTHASONE 4 MG/ML 1ML VIAL (J1100) As Ordered ONE ×2 (06:58→06:59)
[2019-05-28] MEDS ORDERED: ONDANSETRON 4MG/2ML VIAL (J2405) As Ordered ONE (06:58)
[2019-05-28] MEDS ORDERED: LIDOCAINE 2% INJ 100 MG/5 ML SDV (FOR ANES.) As Ordered ONE (06:59)
[2019-05-28] MEDS ORDERED: propofoL 200 MG/20 ML VIAL As Ordered ONE ×2 (06:59→07:20)
[2019-05-28] MEDS ORDERED: MIDAZOLAM INJ 2 MG/2 ML VIAL (J2250) As Ordered ONE (06:59)
[2019-05-28] MEDS ORDERED: fentaNYL 100 MCG/2 ML INJECTION (J3010) As Ordered ONE (07:00)
[2019-05-28] MEDS ORDERED: ALBUTEROL SULFATE 2.5 MG/0.5 ML INH NEB SOLN As Ordered ONE (07:12)
[2019-05-28] MEDS ORDERED: LIDOCAINE 2% 5ML JELLY UROJET As Ordered ONE (07:14)
[2019-05-28] MEDS ORDERED: LIDOCAINE 2% MDV 20 ML VIAL As Ordered ONE (07:14)
[2019-05-28] MEDS ORDERED: BOTULINUM INJ 100 UNITS (J0585) As Ordered ONE (07:15)
[2019-05-28] MEDS ORDERED: ALBUTEROL SULFATE 2.5 MG/0.5 ML INH NEB SOLN INH ONE (07:30)
[2019-05-28] MEDS ORDERED: ONDANSETRON 4MG/2ML VIAL (J2405) IV PRN (08:30)
[2019-05-28] MEDS ORDERED: LR 1,000 ML IV SCH (08:30)
[2019-05-28 08:55] VITALS: BP 107/55
--- NOTE | 2019-05-29 08:34 | RO ---
DATE OF PROCEDURE: 05/28/2019 PREOPERATIVE DIAGNOSIS: Severe urinary urgency, frequency, mixed urinary incontinence, and nocturnal enuresis despite medical management. POSTOPERATIVE DIAGNOSIS: Severe urinary urgency, frequency, mixed urinary incontinence, and nocturnal enuresis despite medical management. PROCEDURE: Cystoscopy, hydrodistention, bladder biopsies, and intravesical Botox with 100 units. Excision of sebaceous cyst. SURGEON: Dr. Teresa Perez ENGINE COWLING INSTALLER: ANESTHESIA: MAC. MEDICATIONS: Ancef 2 grams preoperatively. DRAINS: None. SPECIMENS: Random bladder biopsies. FINDINGS: Total bladder capacity under anesthesia of only 350 mL with some detrusor instability. There was trabeculation, but no glomerulations seen. INDICATIONS FOR PROCEDURE: The patient is a 43-year-old female with urinary urgency, frequency, significant mixed incontinence, and left nocturnal enuresis. She does have multiple medical issues. She has tried oxybutynin ER 15 mg and also has tried Vesicare and Flomax for her problems. She was very unhappy with her situation and was most bothered by a sensation to urinate with leakage, also with nocturia two to three times with nocturnal enuresis. After discussing all different options, alternatives, risks and benefits, it was decided to bring her to the operating room for the above procedure. Informed consent was obtained in both verbal and written form. DESCRIPTION OF PROCEDURE: The patient was brought into the operating room and preoperative antibiotics had been given. MAC anesthesia was induced. Her legs were then placed in the lithotomy position and careful attention was paid that her pressure points were well padded and protected. Next, she was prepped and draped in the usual fashion. A 21-Cam[place]onian cystoscope was inserted and the urethra was noted to be open without any evidence of lesions or strictures. The bladder was then emptied and then filled using normal saline under gravity drainage. The bladder was filled to capacity and then left distended for a total of 10 minutes and there was some detrusor instability with leakage around. Her total bladder capacity under anesthesia was found to be 350 mL. When the bladder was emptied, there was no evidence of blood efflux, no glomerular lesions, and no evidence of Delvin's ulcerations. At this point, Botox 100 units had been mixed with 10 mL of injectable saline. Next, 1 unit of Botox was placed at a time with a 4 mm needle throughout the bladder with 10 separate injections. When this was done, the fluid source was changed to sterile water and random bladder biopsies were taken. Fulguration was then done of any bleeding areas. The patient's bladder was then emptied and a slurry of lidocaine jelly and 10 mL of 1% lidocaine were mixed and placed in the bladder for post procedural pain control. She had a 1 cm x 1 cm sebaceous cyst on her vagina and I made a small incision through this and evacuated the sebaceous cyst. The patient will be checked to make sure she can void prior to discharge and will follow up in the office in approximately 1 month.
== END 2019-05-28 09:17 | disposition home or self-care (01) ==
LOC: M SDC 05:58
PROVIDERS: ATTEND Specialist
DX: R35.0 Frequency of micturition (principal); R35.1 Nocturia; N39.46 Mixed incontinence; E11.9 Type 2 diabetes mellitus without complications; K21.9 Gastro-esophageal reflux disease without esophagitis; G47.30 Sleep apnea, unspecified; J44.9 Chronic obstructive pulmonary disease, unspecified; F41.9 Anxiety disorder, unspecified; F32.9 Major depressive disorder, single episode, unspecified; G43.909 Migraine, unspecified, not intractable, without status migrainosus; Z79.84 Long term (current) use of oral hypoglycemic drugs; Z79.52 Long term (current) use of systemic steroids; Z79.899 Other long term (current) drug therapy
CPT/HCPCS: 10060; 52204; 52260; 52287; 88305; J0585; J0690; J1100; J2250; J2405; J3010; L8606

== ENCOUNTER → 2019-07-04 | Outpatient (REF) | payer OTHER, MEDICAID ==
[~2019-07-04] MED LIST changes: +OXYB15TA PO; -OXYB15TA14 PO
[2019-07-04 14:39] LABS: BACTERIA, URINE AUTO NEGATIVE (NEGATIVE); RBC, URINE AUTO 0 /HPF (0-3); SQUAMOUS EPITHELIAL CELL UR AU 0 /HPF (0-6); WBC, URINE AUTO 0 /HPF (0-3)
== END ==
LOC: M SMT 13:03
PROVIDERS: ATTEND Specialist
DX: Z28.21 Immunization not carried out because of patient refusal (principal)

== ENCOUNTER → 2019-07-27 | Outpatient (CLI) | payer OTHER ==
[~2019-07-27] MED LIST changes: -OXYB15TA PO; +OXYB1TAB13 PO
--- NOTE | 2019-07-27 15:15 | REP ---
ULTRASOUND POSTERIOR NECK SOFT TISSUES: Ultrasound posterior neck soft tissues performed at the site of a palpable lump. Oval, hypoechoic subcutaneous area measures 2.0 x 0.9 x 2.5 cm with extension of a small tract to the surface of the skin. This most likely represents a complex fluid collection. A similar hypoechoic area is seen adjacent to this, 8 x 4 x 3 mm, also located quite superficially. These may represent complex sebaceous cysts. Electronically Signed by Fuad Jovel MD 07/30/2019 09:35 A
== END ==
LOC: M RAD 11:07
PROVIDERS: ATTEND Dermatology
DX: D48.9 Neoplasm of uncertain behavior, unspecified (principal)

== ENCOUNTER → 2019-08-01 | Outpatient (REF) | payer OTHER | LOC: M LAB REF 18:20 | PROVIDERS: ATTEND Dermatology | DX: L92.9 Granulomatous disorder of the skin and subcutaneous tissue, unspecified (principal) ==

== ENCOUNTER → 2019-10-05 | Outpatient (CLI) | payer OTHER ==
[~2019-10-05] MED LIST changes: +OXYB15TA14 PO; -OXYB1TAB13 PO
--- NOTE | 2019-10-05 16:31 | REP ---
BILATERAL MAMMOGRAM WITH 3D TOMOSYNTHESIS, LEFT BREAST ULTRASOUND: HISTORY: Left nipple discharge, white/yellow in color. Family history of breast cancer in two maternal aunts. Gwendolyn Nicole lifetime risk of breast cancer 11.5%. COMPARISON: Mammogram 01/13/2018 and 06/01/2010. MLO and CC views of both breasts performed. 3D tomosynthesis was performed. Mild scattered fibroglandular tissue is again seen bilaterally, unchanged since prior study. A well-circumscribed nodule in the upper outer quadrant of the left breast posteriorly is stable. No new mass, architectural distortion or clustered microcalcifications are seen. Real-time sonographic evaluation of the left retroareolar region performed due to a white and yellow nipple discharge. Mildly dilated ducts are seen in the retroareolar region without a suspicious nodule. IMPRESSION: ACR 2 benign. No mass or clustered microcalcifications. Stable mammogram. Mildly dilated ducts are seen sonographically in the left retroareolar region in this patient with a white and yellow left nipple discharge. A followup mammogram is recommended in one year. BIRADS 2: BI-RADS/ACR category 2 mammogram. Benign Findings. This mammogram was interpreted with the aid of an FDA-approved computer-aided detection system. The patient states she/he had a clinical breast exam in 09/2019. The patient letter being requested is M2. Electronically Signed by Fuad Jovle MD 10/05/2019 05:30 P
== END ==
LOC: M RAD 13:46
PROVIDERS: ATTEND Nurse Practitioner Family
DX: N64.52 Nipple discharge (principal); Z80.3 Family history of malignant neoplasm of breast; N63.21 Unspecified lump in the left breast, upper outer quadrant
CPT/HCPCS: 76642; 77066; G0279

== ENCOUNTER → 2019-12-12 | Outpatient (REF) | payer OTHER ==
[~2019-12-12] MED LIST changes: -ROPI1TAB PO; +ROPI1TAB3 PO
== END ==
LOC: M LAB REF 17:16
PROVIDERS: ATTEND Dermatology
DX: L73.2 Hidradenitis suppurativa (principal)

== ENCOUNTER 2020-02-10 18:25 | Emergency (ER) | payer OTHER ==
[~2020-02-10] VITALS: Ht 165.1 cm; Wt 103.8 kg
[2020-02-10 18:26] VITALS: BP 161/84
[2020-02-10] MEDS ORDERED: CYCL-707 (18:44)
[2020-02-10] MEDS ORDERED: ECOT81TA5 PO (18:44)
[2020-02-10] MEDS ORDERED: HYDR-3719 (18:44)
[2020-02-10] MEDS ORDERED: DOXYCYCLINE HYCLATE 100MG TABLET PO ONE (19:00)
[2020-02-10] MEDS ORDERED: NORCO, ANEXSIA 5/325MG TABLET (HYDROcodone/ACETAMINOPHEN) PO ONE (19:00)
[2020-02-10] MEDS ORDERED: LIDOCAINE W/EPINEPHRINE 1% 20ML VIAL SC ONE (19:00)
[2020-02-10] MEDS ORDERED: DOXY100C37 PO (19:16)
== END 2020-02-10 19:27 | disposition home or self-care (01) ==
LOC: M ED 18:25
DX: L02.416 Cutaneous abscess of left lower limb (principal); G43.909 Migraine, unspecified, not intractable, without status migrainosus; J45.909 Unspecified asthma, uncomplicated; J44.9 Chronic obstructive pulmonary disease, unspecified; K21.9 Gastro-esophageal reflux disease without esophagitis; F17.200 Nicotine dependence, unspecified, uncomplicated; Z79.82 Long term (current) use of aspirin; Z79.899 Other long term (current) drug therapy; Z88.6 Allergy status to analgesic agent

== ENCOUNTER → 2020-04-23 | Outpatient (CLI) | payer OTHER ==
[~2020-04-23] MED LIST changes: +CYCL-707; +DOXY100C37 PO; +ECOT81TA5 PO; +HYDR-3719
== END ==
LOC: M LAB 12:03
PROVIDERS: ATTEND Nurse Practitioner Adult Health
DX: L73.2 Hidradenitis suppurativa (principal)

== ENCOUNTER → 2020-05-14 | Outpatient (CLI) | payer OTHER ==
[2020-05-14 18:33] LABS: ALBUMIN 3.2 GM/DL (3.2-5.2); ALT/SGPT 27 U/L (12-78); BILIRUBIN,TOTAL 0.2 MG/DL (0.2-1.0); BLOOD UREA NITROGEN 8 MG/DL (7-18); CARBON DIOXIDE LEVEL 24 MEQ/L (21-32); CHLORIDE LEVEL 102 MEQ/L (98-107); CHOLESTEROL LEVEL 143 MG/DL (<200); CHOLESTEROL RISK RATIO 5.107 (<5); CREATININE FOR GFR 0.74 MG/DL (0.55-1.30); GLOMERULAR FILTRATION RATE > 60.0 (>58); GLUCOSE, FASTING 293 MG/DL (70-100); HDL CHOLESTEROL 28 MG/DL (>40); LDL CHOLESTEROL 59 MG/DL (<100); NON-HDL-C 115 MG/DL; POTASSIUM SERUM 3.9 MEQ/L (3.5-5.1); SODIUM LEVEL 133 MEQ/L (136-145); TOTAL 25(OH) VITAMIN D 34.5 NG/ML (30.0-100.0); TOTAL PROTEIN 7.3 GM/DL (6.4-8.2); TRIGLYCERIDES LEVEL 281 MG/DL (<150)
[2020-05-14 18:54] LABS: HEMOGLOBIN A1c 11.1 %
== END ==
LOC: M PLALAB 15:08
PROVIDERS: ATTEND Nurse Practitioner Adult Health
DX: Z13.29 Encounter for screening for other suspected endocrine disorder (principal); Z13.220 Encounter for screening for lipoid disorders; E11.9 Type 2 diabetes mellitus without complications; E55.9 Vitamin D deficiency, unspecified

== ENCOUNTER → 2020-05-20 | Outpatient (CLI) | payer OTHER ==
--- NOTE | 2020-06-05 11:14 | REP ---
PELVIC ULTRASOUND CLINICAL: Pelvic pain. TECHNIQUE: Transabdominal pelvic ultrasound followed by transvaginal examination for better evaluation of the adnexa with color Doppler evaluation of the ovaries. FINDINGS: Bladder is normal and measures 4.4 x 6.8 x 4.0 cm. Patient is noted to be status post hysterectomy. No pelvic fluid or adnexal mass lesion identified. The bilateral ovaries are normal in vascularity without torsion. Right ovary measures 3.5 x 2.5 x 1.6 cm (RI 0.39) and includes two cystic structures measuring 19 x 7 x 7 mm and 14 x 10 x 5 mm. Left ovary measures 2.5 x 1.9 x 2.8 cm (RI 0.45) and includes 1.5 x 1.5 x 1.7 cm cyst. IMPRESSION: Status post hysterectomy. Bilateral ovarian cysts. Findings likely physiologic. Consider follow-up examination in four to six weeks to evaluate for resolution. MTDD
== END ==
LOC: M RAD 09:57
PROVIDERS: ATTEND Nurse Practitioner Adult Health
DX: R10.9 Unspecified abdominal pain (principal); Z90.79 Acquired absence of other genital organ(s); N83.201 Unspecified ovarian cyst, right side; N83.202 Unspecified ovarian cyst, left side

== ENCOUNTER → 2020-08-04 | Outpatient (CLI) | payer OTHER ==
[2020-08-04 16:44] LABS: BLOOD UREA NITROGEN 8 MG/DL (7-18); CALCIUM LEVEL 9.8 MG/DL (8.5-10.1); CARBON DIOXIDE LEVEL 25 MEQ/L (21-32); CHLORIDE LEVEL 104 MEQ/L (98-107); CREATININE FOR GFR 0.81 MG/DL (0.55-1.30); GLOMERULAR FILTRATION RATE > 60.0 (>58); GLUCOSE, FASTING 177 MG/DL (70-100); POTASSIUM SERUM 4.3 MEQ/L (3.5-5.1); SODIUM LEVEL 134 MEQ/L (136-145)
--- NOTE | 2020-08-04 20:56 | REP ---
INDICATION: ABDOMINAL DISCOMFORT COMPARISON: 05/20/2020 TECHNIQUE: Transabdominal pelvic ultrasound followed by transvaginal examination for better evaluation of the endometrium and adnexa with color Doppler evaluation of the ovaries. FINDINGS: Bladder is unremarkable and measures 7.3 x 6.0 x 7.0 cm. Patient is status post hysterectomy. Bilateral ovaries are normal in appearance and vascularity without evidence for torsion. Right ovary measures 2.6 x 2.5 x 2.0 cm and includes 1.4 cm dominant follicle; R I = 0.52. Left ovary measures 2.3 x 2.2 x 2.2 cm; R I = 0.64. Previously identified ovarian cysts have resolved. No pelvic fluid or adnexal mass lesion. IMPRESSION: Status post hysterectomy. Otherwise unremarkable. <Electronically signed by Morales Tam > 08/04/202051
== END ==
LOC: M LAB 15:12 → M RAD 15:12
PROVIDERS: ATTEND Nurse Practitioner Adult Health
DX: R10.9 Unspecified abdominal pain (principal); E11.9 Type 2 diabetes mellitus without complications

== ENCOUNTER 2020-08-24 09:21 | Emergency (ER) | payer OTHER ==
[~2020-08-24] VITALS: Ht 165.1 cm; Wt 100.3 kg
[~2020-08-24 09:21] MED LIST changes: -CYCL-707; +CYCL-707 PO; -HYDR-3719; +HYDR-3719 PO
[2020-08-24] MEDS ORDERED: MAPA500T2 PO (09:32)
[2020-08-24] MEDS ORDERED: LISI-538 PO (09:32)
--- NOTE | 2020-08-24 10:59 | REP ---
INDICATION: trauma, pain, swelling COMPARISON: None. TECHNIQUE: AP, lateral, bilateral oblique and sunrise views. FINDINGS: The osseous structures and joint spaces are intact and age-appropriate. There is no evidence for acute fracture or dislocation. No joint effusion is appreciated. Surrounding soft tissues are unremarkable. No subcutaneous emphysema or radiodense foreign body. IMPRESSION: Age-related changes. No acute fracture or dislocation. <Electronically signed by Morales Tam > 08/24/20 [id number]
[2020-08-24 11:15] VITALS: BP 142/81
== END 2020-08-24 11:16 | disposition home or self-care (01) ==
LOC: M ED 09:21
DX: M25.562 Pain in left knee (principal); E11.9 Type 2 diabetes mellitus without complications; G43.909 Migraine, unspecified, not intractable, without status migrainosus; K21.9 Gastro-esophageal reflux disease without esophagitis; Z79.82 Long term (current) use of aspirin; Z79.84 Long term (current) use of oral hypoglycemic drugs; Z79.899 Other long term (current) drug therapy; Z88.6 Allergy status to analgesic agent

== ENCOUNTER → 2020-10-07 | Outpatient (REF) | payer OTHER ==
[~2020-10-07] MED LIST changes: +LISI-538 PO; +MAPA500T2 PO
== END ==
LOC: M LAB REF 16:39
PROVIDERS: ATTEND Physician Assistant
DX: L72.3 Sebaceous cyst (principal)

== ENCOUNTER → 2021-01-12 | Outpatient (REF) | payer OTHER ==
[~2021-01-12] MED LIST changes: -LISI-538 PO; -LISI-542 PO; +LISI-898 PO; +LISI20TA33 PO
[2021-01-12 15:47] LABS: HEMOGLOBIN A1c 8.8 %
[2021-01-12 15:53] LABS: ALBUMIN 3.4 GM/DL (3.2-5.2); ALT/SGPT 34 U/L (12-78); BILIRUBIN,TOTAL 0.3 MG/DL (0.2-1.0); BLOOD UREA NITROGEN 8 MG/DL (7-18); CALCIUM LEVEL 9.5 MG/DL (8.5-10.1); CARBON DIOXIDE LEVEL 29 MEQ/L (21-32); CHLORIDE LEVEL 102 MEQ/L (98-107); CHOLESTEROL LEVEL 140 MG/DL (<200); CHOLESTEROL RISK RATIO 4.375 (<5); CREATININE FOR GFR 0.73 MG/DL (0.55-1.30); GLOMERULAR FILTRATION RATE > 60.0 (>58); GLUCOSE, FASTING 147 MG/DL (70-100); HDL CHOLESTEROL 32 MG/DL (>40); LDL CHOLESTEROL 63 MG/DL (<100); NON-HDL-C 108 MG/DL; POTASSIUM SERUM 4.2 MEQ/L (3.5-5.1); SODIUM LEVEL 136 MEQ/L (136-145); TOTAL PROTEIN 7.3 GM/DL (6.4-8.2); TRIGLYCERIDES LEVEL 224 MG/DL (<150)
[2021-01-12 16:18] LABS: MALB URINE SIEMENS 41.3 MG/L; MAU/CREAT RATIO 19.9 MCG/MG (0.0-30.0)
== END ==
LOC: M SFHCPLAZ 14:31
PROVIDERS: ATTEND Nurse Practitioner Adult Health
DX: E11.9 Type 2 diabetes mellitus without complications (principal); E78.2 Mixed hyperlipidemia

== ENCOUNTER 2021-04-04 08:48 | Emergency (ER) | payer OTHER ==
[~2021-04-04] VITALS: Ht 167.6 cm; Wt 100.5 kg
[~2021-04-04 08:48] MED LIST changes: -DOXY100C37 PO; +DOXY1CAP62 PO; +OMEP40CA4 PO; -OMEP40CA97 PO
[2021-04-04] MEDS ORDERED: TRUL0.5I (08:57)
[2021-04-04] MEDS ORDERED: HUMI40IN2 (08:57)
[2021-04-04] MEDS ORDERED: ACETAMINOPHEN 500 MG TAB PO ONE (09:55)
--- NOTE | 2021-04-04 10:40 | REP ---
INDICATION: pain, swelling, limited rom 3rd-5th finger. COMPARISON: None. TECHNIQUE: PA lateral and bilateral oblique views of the right hand were obtained. FINDINGS: There is no evidence of fracture or dislocation. There are no significant joint space abnormalities. There are no abnormal soft tissue calcifications or radiopaque foreign bodies. IMPRESSION: No evidence of fracture or significant arthropathy. <Electronically signed by Meño Perez > 04/04/21 [id number]
--- NOTE | 2021-04-04 10:48 | REP ---
INDICATION: r lateral hand tingling, hx of bulging disc. COMPARISON: None. TECHNIQUE: Contiguous axial projection images were obtained from the skull base to the thoracic inlet. 2D sagittal and coronal reconstructions were performed. FINDINGS: There is loss of the normal cervical lordosis and torticollis to the left. 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 The intervertebral disc spaces are preserved. There is no evidence of spondylolisthesis or compression fractures. There is no significant facet arthropathy. There is no central canal stenosis, lateral recess stenosis or foraminal narrowing. There is calcification of the anterior longitudinal ligament at the C5-6 and C6-7 levels. There are calcifications within the nuchal ligament at the C6 level. Skull base is normal. The visualized mastoid air cells and external, middle and inner ears are unremarkable. There is paraseptal emphysema in both lung apices. IMPRESSION: 1. Cervical spasm. 2. No significant degenerative disc disease or facet arthropathy. 3. No evidence of central canal stenosis, lateral recess stenosis or foraminal narrowing. 4. No evidence of compression fracture or spondylolisthesis. 5. Evidence for remote injury to the nuchal ligament. 6. Emphysema. <Electronically signed by Meño Perez > 04/04/21 [id number]
[2021-04-04 11:23] VITALS: BP 147/82
== END 2021-04-04 11:31 | disposition home or self-care (01) ==
LOC: M ED 08:48
DX: R22.31 Localized swelling, mass and lump, right upper limb (principal); R20.2 Paresthesia of skin; M62.838 Other muscle spasm; E11.9 Type 2 diabetes mellitus without complications; I10 Essential (primary) hypertension; G56.02 Carpal tunnel syndrome, left upper limb; J45.909 Unspecified asthma, uncomplicated; J44.9 Chronic obstructive pulmonary disease, unspecified; G43.909 Migraine, unspecified, not intractable, without status migrainosus; M79.7 Fibromyalgia; K21.9 Gastro-esophageal reflux disease without esophagitis; M19.90 Unspecified osteoarthritis, unspecified site; F41.9 Anxiety disorder, unspecified; F32.9 Major depressive disorder, single episode, unspecified; F17.200 Nicotine dependence, unspecified, uncomplicated; Z79.82 Long term (current) use of aspirin; Z79.84 Long term (current) use of oral hypoglycemic drugs; Z79.899 Other long term (current) drug therapy; Z88.6 Allergy status to analgesic agent

== ENCOUNTER → 2021-04-14 | Outpatient (REF) | payer OTHER ==
[~2021-04-14] MED LIST changes: +HUMI40IN2; +TRUL0.5I
[2021-04-14 18:20] LABS: BACTERIA, URINE AUTO NEGATIVE (NEGATIVE); MUCUS, URINE SMALL (NEGATIVE); RBC, URINE AUTO 1 /HPF (0-3); SQUAMOUS EPITHELIAL CELL UR AU 5 /HPF (0-6); WBC, URINE AUTO 2 /HPF (0-3)
== END ==
LOC: M SMT 16:53
PROVIDERS: ATTEND Specialist
DX: N39.46 Mixed incontinence (principal)

== ENCOUNTER → 2021-04-23 | Outpatient (CLI) | payer OTHER ==
[2021-04-23 12:40] LABS: ALBUMIN 3.4 GM/DL (3.2-5.2); ALT/SGPT 30 U/L (12-78); BILIRUBIN,TOTAL 0.3 MG/DL (0.2-1.0); BLOOD UREA NITROGEN 12 MG/DL (7-18); CALCIUM LEVEL 8.8 MG/DL (8.5-10.1); CARBON DIOXIDE LEVEL 24 MEQ/L (21-32); CHLORIDE LEVEL 101 MEQ/L (98-107); CHOLESTEROL LEVEL 148 MG/DL (<200); CHOLESTEROL RISK RATIO 6.166 (<5); CREATININE FOR GFR 0.78 MG/DL (0.55-1.30); GLOMERULAR FILTRATION RATE > 60.0 (>58); GLUCOSE, FASTING 204 MG/DL (70-100); HDL CHOLESTEROL 24 MG/DL (>40); LDL CHOLESTEROL 60 MG/DL (<100); NON-HDL-C 124 MG/DL; POTASSIUM SERUM 4.6 MEQ/L (3.5-5.1); SODIUM LEVEL 133 MEQ/L (136-145); TOTAL PROTEIN 7.2 GM/DL (6.4-8.2); TRIGLYCERIDES LEVEL 320 MG/DL (<150)
[2021-04-23 12:45] LABS: TOTAL 25(OH) VITAMIN D 76.1 NG/ML (30.0-100.0)
[2021-04-23 12:46] LABS: MALB URINE SIEMENS < 5.0 MG/L; MAU/CREAT RATIO 6.8 MCG/MG (0.0-30.0)
[2021-04-23 12:53] LABS: HEMOGLOBIN A1c 7.7 %
== END ==
LOC: M PLALAB 08:57
PROVIDERS: ATTEND Nurse Practitioner Adult Health
DX: E11.9 Type 2 diabetes mellitus without complications (principal); E78.2 Mixed hyperlipidemia; E55.9 Vitamin D deficiency, unspecified

== ENCOUNTER → 2021-05-13 | Outpatient (REF) | payer OTHER | LOC: M LAB REF 17:19 | PROVIDERS: ATTEND Physician Assistant | DX: L82.1 Other seborrheic keratosis (principal) ==

== ENCOUNTER → 2022-02-09 | Outpatient (CLI) | payer OTHER ==
[~2022-02-09] MED LIST changes: +ALBU8.5H INH; +DOXE10CA PO; +DOXY-443 PO; -DOXY1CAP62 PO; +ERGO500029 PO; +FLUT1INH3 INH; -LISI-898 PO; +LISI5TAB11 PO; +METF-838 PO; +OMEP40CA5 PO; +PRAM0.5T4 PO; +TRAZ-257 PO
[2022-02-09 11:26] LABS: HEMATOCRIT 43.9 % (36.0-47.0); HEMOGLOBIN 14.4 g/dl (12.0-15.5); MEAN CORPUSCULAR HEMOGLOBIN 29.5 pg (27.0-33.0); MEAN CORPUSCULAR HGB CONC 32.8 g/dl (32.0-36.5); PLATELET COUNT, AUTOMATED 284 10^3/uL (150-450); RED BLOOD COUNT 4.88 10^6/uL (4.00-5.40); WHITE BLOOD COUNT 11.1 10^3/uL (4.0-10.0)
[2022-02-09 11:46] LABS: BACTERIA, URINE SMALL AMOUNT; RBC, URINE 0-1 /hpf (0-3); SQUAMOUS EPITHELIAL CELL URINE MOD AMOUNT /hpf (SMALL AMT); WBC, URINE 0-1 /hpf (0-3)
[2022-02-09 11:47] LABS: HYALINE CAST, URINE NONE SEEN /lpf (0-1); MUCUS, URINE SMALL AMOUNT (NEGATIVE)
[2022-02-09 12:01] LABS: BLOOD UREA NITROGEN 8 MG/DL (7-18); CALCIUM LEVEL 9.4 MG/DL (8.5-10.1); CARBON DIOXIDE LEVEL 26 MEQ/L (21-32); CHLORIDE LEVEL 101 MEQ/L (98-107); CREATININE FOR GFR 0.92 MG/DL (0.55-1.30); GLOMERULAR FILTRATION RATE > 60.0 (>58); GLUCOSE, FASTING 136 MG/DL (70-100); POTASSIUM SERUM 4.7 MEQ/L (3.5-5.1); SODIUM LEVEL 134 MEQ/L (136-145)
== END ==
LOC: M PLALAB 08:43
PROVIDERS: ATTEND Specialist
DX: Z01.818 Encounter for other preprocedural examination (principal); N39.46 Mixed incontinence

== ENCOUNTER → 2022-02-09 | Outpatient (CLI) | payer OTHER ==
[2022-02-09 12:02] LABS: ALBUMIN 3.4 GM/DL (3.2-5.2); ALT/SGPT 32 U/L (12-78); BILIRUBIN,TOTAL 0.3 MG/DL (0.2-1.0); BLOOD UREA NITROGEN 8 MG/DL (7-18); CALCIUM LEVEL 9.3 MG/DL (8.5-10.1); CARBON DIOXIDE LEVEL 26 MEQ/L (21-32); CHLORIDE LEVEL 101 MEQ/L (98-107); CHOLESTEROL LEVEL 125 MG/DL (<200); CHOLESTEROL RISK RATIO 4.464 (<5); CREATININE FOR GFR 0.94 MG/DL (0.55-1.30); GLOMERULAR FILTRATION RATE > 60.0 (>58); GLUCOSE, FASTING 134 MG/DL (70-100); HDL CHOLESTEROL 28 MG/DL (>40); LDL CHOLESTEROL 55 MG/DL (<100); NON-HDL-C 97 MG/DL; POTASSIUM SERUM 4.5 MEQ/L (3.5-5.1); SODIUM LEVEL 133 MEQ/L (136-145); TOTAL PROTEIN 7.3 GM/DL (6.4-8.2); TRIGLYCERIDES LEVEL 212 MG/DL (<150)
[2022-02-09 12:03] LABS: TOTAL 25(OH) VITAMIN D 92.3 NG/ML (30.0-100.0)
[2022-02-09 12:12] LABS: CREATININE, URINE 66.5 MG/DL; MALB URINE SIEMENS < 5.0 MG/L; MAU/CREAT RATIO 7.5 MCG/MG (0.0-30.0)
[2022-02-09 12:19] LABS: HEMOGLOBIN A1c 9.6 %
== END ==
LOC: M PLALAB 08:40
PROVIDERS: ATTEND Nurse Practitioner Adult Health
DX: E11.9 Type 2 diabetes mellitus without complications (principal); E55.9 Vitamin D deficiency, unspecified; E78.2 Mixed hyperlipidemia

== ENCOUNTER → 2022-02-09 | Outpatient (CLI) | payer OTHER | LOC: M PLALAB 08:45 | PROVIDERS: ATTEND Physician Assistant | DX: L73.2 Hidradenitis suppurativa (principal) ==

== ENCOUNTER → 2022-02-15 | Outpatient (CLI) | payer OTHER | LOC: M LABSMTC 10:45 | PROVIDERS: ATTEND Anesthesiology | DX: Z01.812 Encounter for preprocedural laboratory examination (principal); Z20.822 Contact with and (suspected) exposure to COVID-19 ==

== ENCOUNTER 2022-02-19 08:14 | Day surgery (SDC) | payer OTHER ==
[~2022-02-19] VITALS: Ht 167.6 cm; Wt 98.5 kg
[~2022-02-19 08:14] MED LIST changes: -HUMI40IN2; +HUMI40IN2 SC; +METH2.5T48 PO; -TRUL0.5I; +TRUL0.5I SC; +ceFAZolin SOD 2 GM in IV 1 EA IV ONE
[2022-02-19] MEDS ORDERED: LR 1,000 ML IV SCH (08:40)
[2022-02-19] MEDS ORDERED: propofoL 200 MG/20 ML VIAL As Ordered ONE ×2 (09:49→10:26)
[2022-02-19] MEDS ORDERED: LIDOCAINE 2% 100MG/5ML SDV (FOR ANES.) As Ordered ONE (09:49)
[2022-02-19] MEDS ORDERED: fentaNYL 100 MCG/2 ML INJECTION As Ordered ONE (09:49)
[2022-02-19] MEDS ORDERED: MIDAZOLAM INJ 2MG/2ML VIAL (J2250 PER 1MG) As Ordered ONE (09:49)
[2022-02-19] MEDS ORDERED: LIDOCAINE 2% 5ML JELLY UROJET As Ordered ONE (09:52)
[2022-02-19] MEDS ORDERED: BOTOX THERAPEUTIC 100 UNIT VIAL (J0585 PER 1 UNIT) As Ordered ONE (09:52)
[2022-02-19] MEDS ORDERED: LIDOCAINE 2% MDV 20ML VIAL As Ordered ONE (09:52)
[2022-02-19] MEDS ORDERED: KETOROLAC 60MG 2ML VIAL As Ordered ONE (10:26)
[2022-02-19 11:59] VITALS: BP 152/81
== END 2022-02-19 12:03 | disposition home or self-care (01) ==
LOC: M SDC 08:14
PROVIDERS: ATTEND Specialist
DX: N39.3 Stress incontinence (female) (male) (principal); R39.15 Urgency of urination; I10 Essential (primary) hypertension; E11.9 Type 2 diabetes mellitus without complications; M79.7 Fibromyalgia; K21.9 Gastro-esophageal reflux disease without esophagitis; Z79.51 Long term (current) use of inhaled steroids; F41.9 Anxiety disorder, unspecified; F32.A Depression, unspecified; G47.33 Obstructive sleep apnea (adult) (pediatric); Z79.84 Long term (current) use of oral hypoglycemic drugs; Z92.21 Personal history of antineoplastic chemotherapy; F17.210 Nicotine dependence, cigarettes, uncomplicated; Z88.8 Allergy status to other drugs, medicaments and biological substances
CPT/HCPCS: 52204; 52260; 52287; 88305; J0585; J1885; J2250; J3010; L8606

== ENCOUNTER 2022-03-06 09:05 | Emergency (ER) | payer OTHER ==
[~2022-03-06] VITALS: Ht 167.6 cm; Wt 98.5 kg
[~2022-03-06 09:05] MED LIST changes: -ceFAZolin SOD 2 GM in IV 1 EA IV ONE
[2022-03-06 09:37] LABS: GLUCOSE, URINE (UA) MANUAL OBSCURED mg/dL (NEGATIVE); KETONE, URINE MANUAL OBSCURED mg/dL (NEGATIVE)
[2022-03-06 09:38] LABS: BILIRUBIN, URINE MANUAL OBSCURED (NEGATIVE); UROBILINOGEN, URINE MANUAL OBSCURED mg/dl (NORMAL)
[2022-03-06 09:46] LABS: MUCUS, URINE SMALL AMOUNT (NEGATIVE); RBC, URINE TNTC /hpf (0-3); SQUAMOUS EPITHELIAL CELL URINE SMALL AMOUNT /hpf (SMALL AMT)
[2022-03-06 09:48] LABS: BACTERIA, URINE SMALL AMOUNT; HYALINE CAST, URINE NONE SEEN /lpf (0-1)
[2022-03-06] MEDS ORDERED: CEFD300C PO (11:26)
[2022-03-06 11:42] VITALS: BP 139/77
== END 2022-03-06 11:59 | disposition home or self-care (01) ==
LOC: M ED 09:05
DX: N39.0 Urinary tract infection, site not specified (principal); R31.9 Hematuria, unspecified; E11.9 Type 2 diabetes mellitus without complications; I10 Essential (primary) hypertension; J44.9 Chronic obstructive pulmonary disease, unspecified; K21.9 Gastro-esophageal reflux disease without esophagitis; F17.200 Nicotine dependence, unspecified, uncomplicated; Z79.4 Long term (current) use of insulin; Z79.84 Long term (current) use of oral hypoglycemic drugs; Z79.899 Other long term (current) drug therapy; Z88.6 Allergy status to analgesic agent

== ENCOUNTER → 2022-03-10 | Outpatient (REF) | payer OTHER ==
[~2022-03-10] MED LIST changes: +CEFD300C PO
[2022-03-10 14:29] LABS: APPEARANCE, URINE HAZY (CLEAR); BACTERIA, URINE AUTO NEGATIVE (NEGATIVE); BILIRUBIN, URINE AUTO NEGATIVE (NEGATIVE); BLOOD, URINE BLOOD 3+ (NEGATIVE); COLOR, URINE YELLOW (YELLOW); GLUCOSE, URINE (UA) AUTO 1+ mg/dL (NEGATIVE); KETONE, URINE AUTO TRACE mg/dL (NEGATIVE); LEUKOCYTE ESTERASE, URINE AUTO NEGATIVE (NEGATIVE); MUCUS, URINE SMALL (NEGATIVE); NITRITE, URINE AUTO NEGATIVE (NEGATIVE); PROTEIN, URINE AUTO NEGATIVE (NEGATIVE); RBC, URINE AUTO TNTC /HPF (0-3); SPECIFIC GRAVITY URINE AUTO 1.018 (1.002-1.035); SQUAMOUS EPITHELIAL CELL UR AU 2 /HPF (0-6); UROBILINOGEN, URINE AUTO 0.2 mg/dL (0.0-2.0); WBC, URINE AUTO 4 /HPF (0-3)
== END ==
LOC: M SMT 13:49
PROVIDERS: ATTEND Nurse Practitioner Women's Health
DX: R39.15 Urgency of urination (principal)

== ENCOUNTER → 2022-04-07 | Outpatient (REF) | payer OTHER | LOC: M SMT 13:10 | PROVIDERS: ATTEND Specialist | DX: N76.1 Subacute and chronic vaginitis (principal) ==

== ENCOUNTER → 2022-06-02 | Outpatient (CLI) | payer OTHER ==
[2022-06-02 11:40] LABS: ALBUMIN 3.2 GM/DL (3.2-5.2); ALT/SGPT 35 U/L (12-78); BILIRUBIN,TOTAL 0.2 MG/DL (0.2-1.0); BLOOD UREA NITROGEN 8 MG/DL (7-18); CALCIUM LEVEL 8.9 MG/DL (8.5-10.1); CARBON DIOXIDE LEVEL 28 MEQ/L (21-32); CHLORIDE LEVEL 101 MEQ/L (98-107); CREATININE FOR GFR 0.77 MG/DL (0.55-1.30); GLOMERULAR FILTRATION RATE > 60.0 (>58); GLUCOSE, FASTING 217 MG/DL (70-100); POTASSIUM SERUM 4.4 MEQ/L (3.5-5.1); SODIUM LEVEL 136 MEQ/L (136-145); TOTAL PROTEIN 6.8 GM/DL (6.4-8.2)
[2022-06-02 11:50] LABS: HEMOGLOBIN A1c 8.8 %
== END ==
LOC: M PLALAB 08:45
PROVIDERS: ATTEND Nurse Practitioner Adult Health
DX: N39.46 Mixed incontinence (principal)

== ENCOUNTER → 2022-09-24 | Outpatient (CLI) | payer OTHER | LOC: M CARPUL 10:31 | PROVIDERS: ATTEND Nurse Practitioner Adult Health | DX: R01.1 Cardiac murmur, unspecified (principal); I35.0 Nonrheumatic aortic (valve) stenosis; I77.819 Aortic ectasia, unspecified site ==

== ENCOUNTER → 2022-11-04 | Outpatient (CLI) | payer OTHER ==
[2022-11-04 14:15] LABS: HEMATOCRIT 40.4 % (36.0-47.0); HEMOGLOBIN 13.1 g/dl (12.0-15.5); MEAN CORPUSCULAR HEMOGLOBIN 27.5 pg (27.0-33.0); MEAN CORPUSCULAR HGB CONC 32.4 g/dl (32.0-36.5); MEAN CORPUSCULAR VOLUME 84.9 fl (80.0-96.0); PLATELET COUNT, AUTOMATED 295 10^3/uL (150-450); RED BLOOD COUNT 4.76 10^6/uL (4.00-5.40)
[2022-11-04 14:41] LABS: C REACTIVE PROTEIN QUANTITATIV 0.9 MG/DL (<1.0)
[2022-11-04 14:58] LABS: ERYTHROCYTE SEDIMENTATION RATE 42 mm/hr (0-20)
[2022-11-04 15:10] LABS: ATYPICAL LYMPH 8 % (0-5); BASOPHILS 2 % (0-1); EOSINOPHILS 3 % (0-3); LYMPHOCYTES 20 % (16-44); MONOCYTES 8 % (0-5); NEUTROPHILS 59 % (28-66)
[2022-11-04 15:12] LABS: PLATELET ESTIMATE NORMAL (NORMAL)
== END ==
LOC: M PLALAB 11:13
PROVIDERS: ATTEND Orthopaedic Surgery
DX: R20.0 Anesthesia of skin (principal); M25.432 Effusion, left wrist

== ENCOUNTER → 2023-01-25 | Outpatient (REF) | payer OTHER | LOC: M SFHCPLAZ 10:06 | PROVIDERS: ATTEND Nurse Practitioner Adult Health | DX: R09.81 Nasal congestion (principal) ==

== ENCOUNTER 2023-03-28 08:34 | Emergency (ER) | payer OTHER ==
[~2023-03-28] VITALS: Ht 167.6 cm; Wt 92.5 kg
[~2023-03-28 08:34] MED LIST changes: -HYDR200T3 PO; +HYDR200T46 PO; -ROPI1TAB3 PO; +ROPI1TAB73 PO
[2023-03-28] MEDS ORDERED: LIDOCAINE W/EPINEPHRINE 1% 20ML VIAL SC ONE (09:40)
[2023-03-28] MEDS ORDERED: DOXY-443 PO (10:03)
[2023-03-28 10:47] VITALS: BP 136/77; TEMP 97.8; O2SAT 100
== END 2023-03-28 10:41 | disposition home or self-care (01) ==
LOC: M ED 08:34
DX: L02.413 Cutaneous abscess of right upper limb (principal); E11.9 Type 2 diabetes mellitus without complications; I10 Essential (primary) hypertension; G43.909 Migraine, unspecified, not intractable, without status migrainosus; J43.9 Emphysema, unspecified; K21.9 Gastro-esophageal reflux disease without esophagitis; M54.9 Dorsalgia, unspecified; F41.9 Anxiety disorder, unspecified; F32.A Depression, unspecified; F17.200 Nicotine dependence, unspecified, uncomplicated; Z79.82 Long term (current) use of aspirin; Z79.4 Long term (current) use of insulin; Z79.899 Other long term (current) drug therapy; Z88.6 Allergy status to analgesic agent

== ENCOUNTER → 2023-06-28 | Outpatient (CLI) | payer OTHER ==
[~2023-06-28] MED LIST changes: +E-Z-GAS II EFFERVESCENT PACKET (SODIUM BICARB./CITRIC ACID/SIMETHICONE) As Ordered ONE; +E-Z-HD 98% w/w 340GM SUSP BTL As Ordered ONE; +E-Z-PAQUE 96% w/w SUSP 176GM BTL As Ordered ONE
== END ==
LOC: M RAD 08:44
PROVIDERS: ATTEND Nurse Practitioner Adult Health
DX: K21.9 Gastro-esophageal reflux disease without esophagitis (principal); K43.9 Ventral hernia without obstruction or gangrene

== ENCOUNTER → 2023-07-14 | Outpatient (REF) | payer OTHER ==
[~2023-07-14] MED LIST changes: -E-Z-GAS II EFFERVESCENT PACKET (SODIUM BICARB./CITRIC ACID/SIMETHICONE) As Ordered ONE; -E-Z-HD 98% w/w 340GM SUSP BTL As Ordered ONE; -E-Z-PAQUE 96% w/w SUSP 176GM BTL As Ordered ONE
== END ==
LOC: M LAB REF 16:00
PROVIDERS: ATTEND Surgery
DX: L73.2 Hidradenitis suppurativa (principal)

== ENCOUNTER 2023-07-25 10:52 | Emergency (ER) | payer OTHER ==
[~2023-07-25] VITALS: Ht 167.6 cm; Wt 91.8 kg
[2023-07-25 14:44] LABS: BASO # 0.1 10^3/uL (0.0-0.2); BASO % 0.9 % (0.0-1.0); EOS # 0.4 10^3/uL (0.0-0.5); EOS % 3.4 % (0.0-3.0); HEMATOCRIT 41.8 % (36.0-47.0); HEMOGLOBIN 13.7 g/dl (12.0-15.5); LYMPH # 2.8 10^3/uL (1.5-5.0); LYMPH % 22.9 % (24.0-44.0); MEAN CORPUSCULAR HEMOGLOBIN 28.4 pg (27.0-33.0); MEAN CORPUSCULAR HGB CONC 32.8 g/dl (32.0-36.5); MEAN CORPUSCULAR VOLUME 86.7 fl (80.0-96.0); MONO % 8.2 % (2.0-8.0); NEUTROPHILS # 7.7 10^3/uL (1.5-8.5); NEUTROPHILS % 64.1 % (36.0-66.0); PLATELET COUNT, AUTOMATED 353 10^3/uL (150-450); RED BLOOD COUNT 4.82 10^6/uL (4.00-5.40)
[2023-07-25 15:02] LABS: BLOOD UREA NITROGEN 8 MG/DL (9-23); CALCIUM LEVEL 8.9 MG/DL (8.5-10.1); CARBON DIOXIDE LEVEL 30 MMOL/L (20-31); CHLORIDE LEVEL 102 MMOL/L (98-107); CREATININE FOR GFR 0.56 MG/DL (0.55-1.30); GLOMERULAR FILTRATION RATE > 60.0 (>51); GLUCOSE, FASTING 99 MG/DL (60-100); POTASSIUM SERUM 4.5 MMOL/L (3.5-5.1); SODIUM LEVEL 137 MMOL/L (136-145)
[2023-07-25 15:09] LABS: ERYTHROCYTE SEDIMENTATION RATE 63 mm/hr (0-30)
[2023-07-25 15:27] VITALS: BP 124/56; TEMP 97.9; O2SAT 98
[2023-07-25] MEDS ORDERED: DOXY-444 PO (15:55)
[2023-07-25] MEDS ORDERED: NORCO, ANEXSIA 5/325MG TABLET (HYDROcodone/ACETAMINOPHEN) PO ONE (16:00)
== END 2023-07-25 16:20 | disposition home or self-care (01) ==
LOC: M ED 10:52
DX: L02.414 Cutaneous abscess of left upper limb (principal); L02.413 Cutaneous abscess of right upper limb; E11.9 Type 2 diabetes mellitus without complications; I10 Essential (primary) hypertension; E78.5 Hyperlipidemia, unspecified; J45.909 Unspecified asthma, uncomplicated; J44.9 Chronic obstructive pulmonary disease, unspecified; F17.200 Nicotine dependence, unspecified, uncomplicated; Z88.6 Allergy status to analgesic agent; Z79.52 Long term (current) use of systemic steroids; Z79.82 Long term (current) use of aspirin; Z79.811 Long term (current) use of aromatase inhibitors; Z79.4 Long term (current) use of insulin; Z79.899 Other long term (current) drug therapy

== ENCOUNTER → 2023-09-27 | Outpatient (REF) | payer OTHER ==
[~2023-09-27] MED LIST changes: +DOXY-444 PO
== END ==
LOC: M LAB REF 16:28
PROVIDERS: ATTEND Surgery
DX: L73.2 Hidradenitis suppurativa (principal)

== ENCOUNTER → 2023-11-24 | Outpatient (CLI) | payer OTHER | LOC: M EKG 08:15 | PROVIDERS: ATTEND Student in an Organized Health Care Education/Training Program | DX: M65.30 Trigger finger, unspecified finger (principal) ==

== ENCOUNTER → 2023-12-06 | Outpatient (REF) | payer OTHER | LOC: M SFHCDERM 10:35 | PROVIDERS: ATTEND Physician Assistant | DX: L73.2 Hidradenitis suppurativa (principal); Z53.9 Procedure and treatment not carried out, unspecified reason ==

== ENCOUNTER → 2023-12-29 | Outpatient (REF) | payer OTHER ==
[2023-12-29 13:52] LABS: APPEARANCE, URINE CLEAR (CLEAR); BACTERIA, URINE AUTO NEGATIVE (NEGATIVE); BILIRUBIN, URINE AUTO NEGATIVE (NEGATIVE); BLOOD, URINE BLOOD NEGATIVE (NEGATIVE); COLOR, URINE YELLOW (YELLOW); GLUCOSE, URINE (UA) AUTO 2+ mg/dL (NEGATIVE); KETONE, URINE AUTO NEGATIVE (NEGATIVE); LEUKOCYTE ESTERASE, URINE AUTO NEGATIVE (NEGATIVE); MUCUS, URINE SMALL (NEGATIVE); NITRITE, URINE AUTO NEGATIVE (NEGATIVE); PROTEIN, URINE AUTO NEGATIVE (NEGATIVE); RBC, URINE AUTO 0 /HPF (0-3); SPECIFIC GRAVITY URINE AUTO 1.019 (1.002-1.035); SQUAMOUS EPITHELIAL CELL UR AU 1 /HPF (0-6); UROBILINOGEN, URINE AUTO 0.2 mg/dL (0.0-2.0); WBC, URINE AUTO 1 /HPF (0-3)
== END ==
LOC: M SMT 12:15
PROVIDERS: ATTEND Specialist
DX: R39.89 Other symptoms and signs involving the genitourinary system (principal)

== ENCOUNTER → 2023-12-30 | Outpatient (CLI) | payer OTHER ==
[2023-12-30 10:06] LABS: HEMATOCRIT 42.2 % (36.0-47.0); HEMOGLOBIN 13.5 g/dl (12.0-15.5); MEAN CORPUSCULAR HEMOGLOBIN 26.3 pg (27.0-33.0); MEAN CORPUSCULAR VOLUME 82.3 fl (80.0-96.0); PLATELET COUNT, AUTOMATED 354 10^3/uL (150-450); RED BLOOD COUNT 5.13 10^6/uL (4.00-5.40); WHITE BLOOD COUNT 12.2 10^3/uL (4.0-10.0)
[2023-12-30 10:35] LABS: ALBUMIN 3.5 G/DL (3.2-5.2); ALKALINE PHOSPHATASE 82 U/L (46-116); ALT/SGPT 13 U/L (7.0-40); AST/SGOT 11 U/L (<34); BILIRUBIN,TOTAL 0.3 MG/DL (0.3-1.2); BLOOD UREA NITROGEN 12 MG/DL (9-23); CALCIUM LEVEL 9.4 MG/DL (8.5-10.1); CARBON DIOXIDE LEVEL 28 MMOL/L (20-31); CHLORIDE LEVEL 99 MMOL/L (98-107); CREATININE FOR GFR 0.57 MG/DL (0.55-1.30); GLOMERULAR FILTRATION RATE > 60.0 (>51); GLUCOSE, FASTING 214 MG/DL (60-100); POTASSIUM SERUM 4.7 MMOL/L (3.5-5.1); SODIUM LEVEL 132 MMOL/L (136-145); TOTAL PROTEIN 7.8 G/DL (5.7-8.2)
[2023-12-30 11:57] LABS: HEPATITIS B SURFACE ANTIBODY NEGATIVE (POSITIVE)
[2023-12-30 12:07] LABS: HIV 1&2 SCREEN NEGATIVE (NEGATIVE)
[2023-12-30 12:14] LABS: HEPATITIS C VIRUS ABY INDEX < 0.02 INDEX (<0.8)
== END ==
LOC: M LAB 08:44
PROVIDERS: ATTEND Physician Assistant
DX: L73.2 Hidradenitis suppurativa (principal)

== ENCOUNTER 2024-01-15 20:31 | Emergency (ER) | payer OTHER ==
[~2024-01-15] VITALS: Ht 165.1 cm; Wt 92.7 kg
[~2024-01-15 20:31] MED LIST changes: +DOXY-323 PO; +DOXY-440 PO; -DOXY-443 PO; -DOXY-444 PO
[2024-01-15 22:25] LABS: BASO # 0.1 10^3/uL (0.0-0.2); BASO % 0.8 % (0.0-1.0); EOS # 0.7 10^3/uL (0.0-0.5); EOS % 5.2 % (0.0-3.0); HEMATOCRIT 37.4 % (36.0-47.0); HEMOGLOBIN 12.3 g/dl (12.0-15.5); LYMPH # 3.1 10^3/uL (1.5-5.0); MEAN CORPUSCULAR HEMOGLOBIN 26.4 pg (27.0-33.0); MEAN CORPUSCULAR HGB CONC 32.9 g/dl (32.0-36.5); MEAN CORPUSCULAR VOLUME 80.3 fl (80.0-96.0); NEUTROPHILS # 9.1 10^3/uL (1.5-8.5); NEUTROPHILS % 64.6 % (36.0-66.0); PLATELET COUNT, AUTOMATED 289 10^3/uL (150-450); RED BLOOD COUNT 4.66 10^6/uL (4.00-5.40); WHITE BLOOD COUNT 14.1 10^3/uL (4.0-10.0)
[2024-01-15 22:30] LABS: ERYTHROCYTE SEDIMENTATION RATE 71 mm/hr (0-30)
[2024-01-15 22:45] LABS: BLOOD UREA NITROGEN 13 MG/DL (9-23); CALCIUM LEVEL 8.7 MG/DL (8.5-10.1); CARBON DIOXIDE LEVEL 25 MMOL/L (20-31); CHLORIDE LEVEL 103 MMOL/L (98-107); CREATININE FOR GFR 0.53 MG/DL (0.55-1.30); GLOMERULAR FILTRATION RATE > 60.0 (>51); GLUCOSE, FASTING 274 MG/DL (60-100); POTASSIUM SERUM 4.1 MMOL/L (3.5-5.1); SODIUM LEVEL 135 MMOL/L (136-145)
[2024-01-15] MEDS ORDERED: VANCOMYCIN HCL 1,750 MG in IV FLUID PLACE HOLDER 1 EA IV ONE (23:05)
[2024-01-15] MEDS: VANCOMYCIN HCL 1,000 MG, VIAL MATE ADAPTER 1 EACH in D5W 250 ML IV ONE (23:59)
[2024-01-16] MEDS: NS 1,000 ML IV ONE
[2024-01-16] MEDS ORDERED: SECU300P SUBQ (01:19)
[2024-01-16] MEDS ORDERED: ATOR1TAB19 PO (01:20)
[2024-01-16] MEDS ORDERED: HOME MED LIST COMPLETE! XX SCH (01:25)
[2024-01-16] MEDS: VANCOMYCIN HCL 750 MG, VIAL MATE ADAPTER 1 EACH in D5W 250 ML IV ONE (01:41)
[2024-01-16] MEDS ORDERED: DOXY-323 PO (02:10)
[2024-01-16 03:26] VITALS: BP 153/74; TEMP 98.2; O2SAT 96
[2024-01-17] MEDS ORDERED: NYST100084 (10:25)
[2024-01-17] MEDS ORDERED: OMEP40CA5 (10:25)
== END 2024-01-16 03:31 | disposition left against medical advice (07) ==
LOC: M ED 20:31
DX: L73.2 Hidradenitis suppurativa (principal); E11.9 Type 2 diabetes mellitus without complications; I10 Essential (primary) hypertension; E78.5 Hyperlipidemia, unspecified; Z88.6 Allergy status to analgesic agent; Z79.51 Long term (current) use of inhaled steroids; Z79.1 Long term (current) use of non-steroidal anti-inflammatories (NSAID); Z79.4 Long term (current) use of insulin; Z79.84 Long term (current) use of oral hypoglycemic drugs; Z79.899 Other long term (current) drug therapy
CPT/HCPCS: 76705; 80048; 83605; 85025; 85652; 86140; 87040; 96361; 96365; 96366; 99284; J3370

== ENCOUNTER 2024-01-17 09:50 | Emergency (ER) | payer OTHER ==
[~2024-01-17] VITALS: Ht 165.1 cm; Wt 92.7 kg
[~2024-01-17 09:50] MED LIST changes: +ATOR1TAB19 PO; +SECU300P SUBQ
[2024-01-17 09:51] VITALS: BP 164/78; TEMP 98.4; O2SAT 97
[2024-01-17] MEDS ORDERED: OMEP40CA5 (10:25)
[2024-01-17] MEDS ORDERED: NYST100084 (10:25)
[2024-01-17 11:35] LABS: HEMATOCRIT 38.9 % (36.0-47.0); HEMOGLOBIN 12.5 g/dl (12.0-15.5); MEAN CORPUSCULAR HEMOGLOBIN 26.3 pg (27.0-33.0); MEAN CORPUSCULAR HGB CONC 32.1 g/dl (32.0-36.5); MEAN CORPUSCULAR VOLUME 81.9 fl (80.0-96.0); PLATELET COUNT, AUTOMATED 306 10^3/uL (150-450); RED BLOOD COUNT 4.75 10^6/uL (4.00-5.40); WHITE BLOOD COUNT 11.2 10^3/uL (4.0-10.0)
[2024-01-17 11:52] LABS: ERYTHROCYTE SEDIMENTATION RATE 76 mm/hr (0-30)
[2024-01-17 11:58] LABS: ATYPICAL LYMPH 2 % (0-5); EOSINOPHILS 4 % (0-3); LYMPHOCYTES 29 % (16-44); MONOCYTES 5 % (0-5); NEUTROPHILS 60 % (28-66); PLATELET ESTIMATE NORMAL (NORMAL)
[2024-01-17] MEDS ORDERED: ISOVUE-370 76% 100ML VIAL As Ordered ONE (13:35)
[2024-01-17] MEDS: LIDOCAINE W/EPINEPHRINE 1% 20ML VIAL SC ONE (14:25)
[2024-01-17] MEDS: MORPHINE 2 MG/ML 1ML VIAL IV ONE (15:26)
[2024-01-17] MEDS: ONDANSETRON 4MG 2ML VIAL IV ONE (15:26)
== END 2024-01-17 15:36 | disposition home or self-care (01) ==
LOC: M ED 09:50
DX: L02.211 Cutaneous abscess of abdominal wall (principal); E11.9 Type 2 diabetes mellitus without complications; I10 Essential (primary) hypertension; G43.909 Migraine, unspecified, not intractable, without status migrainosus; F17.200 Nicotine dependence, unspecified, uncomplicated; Z88.6 Allergy status to analgesic agent; Z79.52 Long term (current) use of systemic steroids; Z79.82 Long term (current) use of aspirin; Z79.4 Long term (current) use of insulin; Z79.811 Long term (current) use of aromatase inhibitors; Z79.899 Other long term (current) drug therapy
CPT/HCPCS: 74160; 80047; 83605; 85025; 85652; 86140; 87070; 87077; 87186; 87205; 96374; 99283; J2405; Q9967

== ENCOUNTER → 2024-02-10 | Outpatient (CLI) | payer OTHER ==
[~2024-02-10] MED LIST changes: +NYST100084; +OMEP40CA5
[2024-02-10 10:03] LABS: BASO # 0.1 10^3/uL (0.0-0.2); BASO % 1.2 % (0.0-1.0); EOS # 0.5 10^3/uL (0.0-0.5); EOS % 5.7 % (0.0-3.0); HEMATOCRIT 39.1 % (36.0-47.0); HEMOGLOBIN 12.6 g/dl (12.0-15.5); LYMPH # 2.7 10^3/uL (1.5-5.0); LYMPH % 27.9 % (24.0-44.0); MEAN CORPUSCULAR HGB CONC 32.2 g/dl (32.0-36.5); MEAN CORPUSCULAR VOLUME 80.8 fl (80.0-96.0); MONO # 0.7 10^3/uL (0.0-0.8); MONO % 7.5 % (2.0-8.0); NEUTROPHILS # 5.4 10^3/uL (1.5-8.5); NEUTROPHILS % 57.3 % (36.0-66.0); PLATELET COUNT, AUTOMATED 339 10^3/uL (150-450); RED BLOOD COUNT 4.84 10^6/uL (4.00-5.40); WHITE BLOOD COUNT 9.5 10^3/uL (4.0-10.0)
[2024-02-10 10:51] LABS: ALBUMIN 3.5 G/DL (3.2-5.2); ALKALINE PHOSPHATASE 70 U/L (46-116); ALT/SGPT 17 U/L (7.0-40); AST/SGOT < 8 U/L (<34); BILIRUBIN,TOTAL 0.2 MG/DL (0.3-1.2); BLOOD UREA NITROGEN 12 MG/DL (9-23); CALCIUM LEVEL 9.2 MG/DL (8.5-10.1); CARBON DIOXIDE LEVEL 25 MMOL/L (20-31); CHLORIDE LEVEL 100 MMOL/L (98-107); CHOLESTEROL LEVEL 113 MG/DL (<200); CHOLESTEROL RISK RATIO 4.61 (<5); CREATININE FOR GFR 0.51 MG/DL (0.55-1.30); FOLATE 10.49 NG/ML (>5.4); GLOMERULAR FILTRATION RATE > 60.0 (>51); GLUCOSE, FASTING 307 MG/DL (60-100); HDL CHOLESTEROL 24.5 MG/DL (>40); LDL CHOLESTEROL 50.7 MG/DL (<100); MAGNESIUM LEVEL 1.4 MG/DL (1.8-2.4); NON-HDL-C 88.5 MG/DL; POTASSIUM SERUM 4.5 MMOL/L (3.5-5.1); SODIUM LEVEL 131 MMOL/L (136-145); TOTAL PROTEIN 7.2 G/DL (5.7-8.2); TRIGLYCERIDES LEVEL 189 MG/DL (<150); VITAMIN B12 LEVEL 446 PG/ML (211-911)
[2024-02-10 11:11] LABS: SICKLE CELL SCREEN NEGATIVE (NEGATIVE)
[2024-02-10 11:28] LABS: ERYTHROCYTE SEDIMENTATION RATE 60 mm/hr (0-30)
[2024-02-11 06:23] LABS: T P ELECTROPHORESIS SO 7.3 g/dL (6.1-8.1)
== END ==
LOC: M LAB 08:29
PROVIDERS: ATTEND Physician Assistant
DX: L02.211 Cutaneous abscess of abdominal wall (principal)

== ENCOUNTER → 2024-02-20 | Outpatient (CLI) | payer OTHER | LOC: M LAB 08:34 | PROVIDERS: ATTEND Physician Assistant | DX: E11.9 Type 2 diabetes mellitus without complications (principal) ==

== ENCOUNTER → 2024-03-21 | Outpatient (REF) | payer OTHER ==
[2024-03-21 12:53] LABS: APPEARANCE, URINE CLEAR (CLEAR); BACTERIA, URINE AUTO NEGATIVE (NEGATIVE); BILIRUBIN, URINE AUTO NEGATIVE (NEGATIVE); BLOOD, URINE BLOOD NEGATIVE (NEGATIVE); COLOR, URINE YELLOW (YELLOW); GLUCOSE, URINE (UA) AUTO NEGATIVE (NEGATIVE); KETONE, URINE AUTO NEGATIVE (NEGATIVE); LEUKOCYTE ESTERASE, URINE AUTO NEGATIVE (NEGATIVE); MUCUS, URINE SMALL (NEGATIVE); NITRITE, URINE AUTO NEGATIVE (NEGATIVE); PROTEIN, URINE AUTO NEGATIVE (NEGATIVE); RBC, URINE AUTO 0 /HPF (0-3); SPECIFIC GRAVITY URINE AUTO 1.011 (1.002-1.035); SQUAMOUS EPITHELIAL CELL UR AU 0 /HPF (0-6); UROBILINOGEN, URINE AUTO 0.2 mg/dL (0.0-2.0); WBC, URINE AUTO 0 /HPF (0-3)
== END ==
LOC: M SMT 12:17
PROVIDERS: ATTEND Specialist
DX: N39.41 Urge incontinence (principal)

== ENCOUNTER 2024-09-28 07:22 | Day surgery (SDC) | payer OTHER ==
[~2024-09-28] VITALS: Ht 167.6 cm; Wt 87.5 kg
[~2024-09-28 07:22] MED LIST changes: -DOXY-323 PO; +DOXY-441 PO
[2024-09-28] MEDS ORDERED: fentaNYL 100 MCG/2 ML INJECTION As Ordered ONE (08:54)
[2024-09-28 09:34] VITALS: TEMP 97.8
[2024-09-28 10:02] VITALS: BP 123/70; O2SAT 95
[2024-09-28] MEDS ORDERED: LIDOCAINE 2% 100MG/5ML SDV (FOR ANES.) As Ordered ONE (11:17)
[2024-09-28] MEDS ORDERED: propofoL 200 MG/20 ML VIAL As Ordered ONE (11:17)
== END 2024-09-28 10:09 | disposition home or self-care (01) ==
LOC: M OPP 07:22
PROVIDERS: ATTEND Surgery
DX: K44.9 Diaphragmatic hernia without obstruction or gangrene (principal); K21.00 Gastro-esophageal reflux disease with esophagitis, without bleeding; K29.70 Gastritis, unspecified, without bleeding; K29.80 Duodenitis without bleeding; R10.13 Epigastric pain; I10 Essential (primary) hypertension; E11.9 Type 2 diabetes mellitus without complications; G47.30 Sleep apnea, unspecified; Z99.89 Dependence on other enabling machines and devices; Z79.84 Long term (current) use of oral hypoglycemic drugs; Z79.85 Long-term (current) use of injectable non-insulin antidiabetic drugs; Z88.8 Allergy status to other drugs, medicaments and biological substances
CPT/HCPCS: 43239; 88305; J3010

== ENCOUNTER → 2024-12-10 | Outpatient (CLI) | payer OTHER ==
[~2024-12-10] MED LIST changes: +FAMO40TA3 PO; +FARX1TAB3 PO; +SECU300P SC; +SITA50TAB PO; +VITATAB73 PO
== END ==
LOC: M LAB 08:55
PROVIDERS: ATTEND Physician Assistant
DX: L73.2 Hidradenitis suppurativa (principal)

== ENCOUNTER → 2024-12-12 | Outpatient (REF) | payer OTHER | LOC: M SFHCDERM 17:04 | PROVIDERS: ATTEND Physician Assistant | DX: L72.0 Epidermal cyst (principal) ==

== ENCOUNTER → 2025-08-08 | Outpatient (REF) | payer OTHER | LOC: M SFHCDERM 09:07 | PROVIDERS: ATTEND Physician Assistant | DX: D48.9 Neoplasm of uncertain behavior, unspecified (principal); Z53.9 Procedure and treatment not carried out, unspecified reason ==